=== PATIENT | female | born 1965 | race Two or more races ===

== ENCOUNTER 2025-01-29 02:08 | Inpatient (IN) | payer MEDICARE, MEDICAID ==
[2025-01-29] VITALS (12 sets, daily range): BP systolic 131–155; BP diastolic 74–91; PULSE 70–80; RESP 18–20; TEMP 98.1–98.9; O2SAT 97–100
[~2025-01-29] VITALS: Ht 152.4 cm; Wt 55.7 kg
--- NOTE | 2025-01-29 02:32 | ED.PDOC ---
SOB-HPI HPI Comments 59 year old female with PMHx cardiac stents-x3 presents to the ED via EMS with a chief complaint of shortness of breath. Per EMS, patient was transferred from [facility] due to elevated troponin levels, was transferred for higher level of care/N-STEMI. Patient was started on Heparin drip prior to ED arrival. Patient states she went to ED due to shortness of breath, is on home O2. Patient is a poor historian. No other symptoms or modifying factors present at this time. 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 History Family History Family History: Reviewed,noncontributory to illness, No family hx of Cancer, No family hx of DM, No family hx of Heart natasha, No family hx of HTN, No family hx ofKidney natasha, No family hx of Liver natasha, No family hx of Lung natasha, No family hx of Stroke Social History Smoker: Non-Smoker Alcohol: Denies ETOH Use Drugs: Denies Drug Use Lives In: Home Constitutional: denies: chills, diaphoresis, fatigue, fever, malaise, sweats, weakness, others EENTM: denies: blurred vision, double vision, ear bleeding, ear discharge, ear drainage, ear pain, ear ringing, eye pain, eye redness, hearing loss, mouth pain, mouth swelling, nasal discharge, nose bleeding, nose congestion, nose pain, photophobia, tearing, throat pain, throat swelling, voice changes, others Respiratory: reports: shortness of breath; denies: cough, hemoptysis, orthopnea, SOB at rest, SOB with excertion, stridor, wheezing, others Cardiovascular: denies: chest pain, dizzy spells, diaphoresis, Dyspnea on exertion, edema, irregular heart beat, left arm pain, lightheadedness, palpitations, PND, syncope, others Gastrointestinal: denies: abdomen distended, abdominal pain, blood streaked bowels, constipated, diarrhea, dysphagia, difficulty swallowing, hematemesis, melena, nausea, poor appetite, poor fluid intake, rectal bleeding, rectal pain, vomiting, others Genitourinary: denies: abnormal vagina bleeding, burning, dyspareunia, dysuria, flank pain, frequency, hematuria, incontinence, pain, , vagina discharge, urgency, others Neurological: denies: dizziness, fainting, headache, left sided numbness, left sided weakness, numbness, paresthesia, pre-existing deficit, right sided numbness, right sided weakness, seizure, speech problems, tingling, tremors, weakness, others Musculoskeletal: denies: back pain, gout, joint pain, joint swelling, muscle pain, muscle stiffness, neck pain, others Integumetry: denies: bruises, change in color, change in hair/nails, dryness, laceration, lesions, lumps, rash, wounds, others Allergic/Immunocompromised: denies: Difficulty Healing, Frequent Infections, Hives, Itching, others Hematologic/Lymphatic: denies: anemia, blood clots, easy bleeding, easy bruising, swollen glands, others Endocrine: denies: excessive hunger, excessive sweating, excessive thirst, excessive urination, flushing, intolerance to cold, intolerance to heat, unexplained weight gain, unexplained weight loss, others Psychiatric: denies: anxiety, bipolar disorder, depression, hopeless, panic disorder, schizophrenia, sleepless, suicidal, others All Other Systems: Reviewed and Negative Physical Exam General Appearance: Normal HEENT: Normal ENT Inspection, Pharynx Normal, TMs Normal Neck: Full Range of Motion, Non-Tender, Normal, Normal Inspection Respiratory: Chest Non-Tender, Lungs Clear, No Accessory Muscle Use, No Respiratory Distress, Normal Breath Sounds Cardiovascular: No Edema, No JVD, No Murmur, No Gallop, Normal Peripheral Pulses, Regular Rate/Rhythm Breast Exam: Deferred Gastrointestinal: No Organomegaly, Non Tender, No Pulsatile Mass, Normal Bowel Sounds, Soft Genitalia: Deferred Pelvic: Deferred Rectal: Deferred Extremities: No calf tenderness, Normal capillary refill, Normal inspection, Normal range of motion, Non-tender, No pedal edema Musculoskeletal : Apperance: Normal Neurologic: Alert, retail store clerk II-XII nml as Tested, No Motor Deficits, Normal Affect, Normal Mood, No Sensory Deficits Cerebellar Function: Normal Reflexes: Normal Skin: Dry, Normal Color, Warm Lymphatic: No Adenopathy Was a procedure done? Was a procedure done?: No Differential Dx Differential Diagnosis: Asthma, Bronchitis, Cardiogenic Shock, CHF, COPD, Dysrhythmia, Hypertension, Hyperventilation, Pneumonia, Pulmonary Embolism, Respiratory Distress, Pharyngitis, URI X-Ray, Labs, Meds, VS Vital Signs Date Time Temp Pulse Resp B/P (MAP) Pulse Ox O2 Delivery O2 Flow Rate FiO2 01/29/25 02:50 26 99 Nasal Cannula* 2 28 01/29/25 02:16 Nasal Cannula* 3 32 01/29/25 02:15 98.4 85 23 165/95 (118) 96 98.4 01/29/25 02:08 98.3 82 18 165/95 100 98.3 Lab Test 01/29/25 03:25 01/29/25 02:22 Range/Units Troponin I High Sensitivity Pending 97 *H </=34 ng/L White Blood Count 7.3 4.4-10.8 10^3/uL Red Blood Count 2.57 L 4.0-5.20 10^6/uL Hemoglobin 8.6 L 12.2-16.2 g/dL Hematocrit 26.1 L 36.0-46.0 % Mean Corpuscular Volume 101.6 H 80.0-100.0 fL Mean Corpuscular Hemoglobin 33.4 H 28.0-32.0 pg Mean Corpuscular Hemoglobin Concent 32.9 32.0-36.0 g/dL Red Cell Distribution Width 16.6 H 11.8-14.3 % Platelet Count 161 140-450 10^3/uL Mean Platelet Volume 8.3 6.9-10.8 fL Neutrophils (%) (Auto) 75.8 37.0-80.0 % Lymphocytes (%) (Auto) 13.9 10.0-50.0 % Monocytes (%) (Auto) 9.7 0.0-12.0 % Eosinophils (%) (Auto) 0.4 0.0-7.0 % Basophils (%) (Auto) 0.2 0.0-2.0 % Neutrophils # (Auto) 5.6 1.6-8.6 10 ^3/uL Lymphocytes # (Auto) 1.0 0.4-5.4 10 ^3/uL Monocytes # (Auto) 0.7 0-1.3 10 ^3/uL Eosinophils # (Auto) 0 0-0.8 10 ^3/uL Basophils # (Auto) 0 0-0.2 10 ^3/uL Nucleated Red Blood Cells 0.0 % Sodium Level 143 136-145 mmol/L Potassium Level 3.0 L 3.5-5.1 mmol/L Chloride Level 111 H 98-107 mmol/L Carbon Dioxide Level 26 20-31 mmol/L Anion Gap 6 5-15 Blood Urea Nitrogen 18 9-23 mg/dL Creatinine 1.36 H 0.550-1.02 mg/dL Glomerular Filtration Rate Calc 45 >90 mL/min BUN/Creatinine Ratio 13.2 10.0-20.0 Serum Glucose 105 74-106 mg/dL Calcium Level 7.8 L 8.7-10.4 mg/dL Magnesium Level 2.1 1.6-2.6 mg/dL Total Bilirubin 0.7 0.2-1.0 mg/dL Aspartate Amino Transferase (AST) 27 13-40 U/L Alanine Aminotransferase (ALT) 25 7-40 U/L Alkaline Phosphatase 82 46-116 U/L B-Type Natriuretic Peptide 479.05 0-100 pg/mL Total Protein 7.2 5.7-8.2 g/dL Albumin 4.0 3.2-4.8 g/dL Current Medications Medications (Trade) Dose Ordered Sig/Alexander Route Start Time Stop Time Status Last Admin Albuterol (Ventolin Medneb) 5 mg ONCE ONCE NEB 01/29/25 02:30 01/29/25 02:31 DC 01/29/25 02:50 Ipratropium [place] (Atrovent Medneb) 0.5 mg ONCE ONCE NEB 01/29/25 02:30 01/29/25 02:31 DC 01/29/25 02:50 Methylprednisolone Sodium Succinate (Solu Medrol) 80 mg ONCE ONCE IV 01/29/25 02:30 01/29/25 02:31 DC 01/29/25 02:46 Time of 1ST Reevaluation: 02:50 Reevaluation 1ST: Unchanged Patient Education/Counseling: Diagnosis, Treatment, Prognosis Family Education/Counseling: No Family Present SEPSIS Sepsis Screen Date sepsis recognized/suspect: Jan 29, 2025 Time Sepsis recognized/suspect: 215 Recent Procedure: No On Antibiotic Therapy: No Respiratory Rate >20: Yes Heart Rate >90: No Temp<36 C (96.8 F) or >38.3 C: No SBP <90 or MAP <65 mmHG: No New Acute Mental Status Change: No Is the patient on CPAP, BIPAP,: No Physician Orders Chest Portable (01/29/25 02:23) Toy Trains And Accessories Salesperson (01/29/25 02:23) Pulse Oximetry (01/29/25 02:23) Electrocardigram (01/29/25 02:23) Troponin-I Hs (01/29/25 03:23) Troponin-I Hs (01/29/25 05:23) Venous Blood Gas (01/29/25 02:23) Vital Signs Date Time Temp Pulse Resp B/P (MAP) Pulse Ox O2 Delivery O2 Flow Rate FiO2 01/29/25 02:50 26 99 Nasal Cannula* 2 28 01/29/25 02:16 Nasal Cannula* 3 32 01/29/25 02:15 98.4 85 23 165/95 (118) 96 98.4 01/29/25 02:08 98.3 82 18 165/95 100 98.3 Laboratory Tests Test 01/29/25 02:22 White Blood Count 7.3 10^3/uL (4.4-10.8) Medications Medications Dose Ordered Sig/Alexander Route Start Time Stop Time Status Last Admin Dose Admin Albuterol 5 mg ONCE ONCE NEB 01/29/25 02:30 01/29/25 02:31 DC 01/29/25 02:50 Ipratropium [place] 0.5 mg ONCE ONCE NEB 01/29/25 02:30 01/29/25 02:31 DC 01/29/25 02:50 Methylprednisolone Sodium Succinate 80 mg ONCE ONCE IV 01/29/25 02:30 01/29/25 02:31 DC 01/29/25 02:46 Departure 1 Departure Time of Disposition: 03:57 Impression: Primary Impression: COPD exacerbation Additional Impressions: Respiratory failure with hypoxia Acute coronary syndrome Disposition: ADMITTED INPATIENT Admit to: Tele Condition: Guarded Discharged With: Self Comments 59-year-old female transferred from [facility] with an elevated troponin. She has a history of COPD and has been shortness of breath. She does have some wheezing on exam. On her lab review she is quite anemic with an H&H of 8.6 and 26. Her BUN creatinine are slightly elevated at 18 and 1.36. Her troponin is elevated 97. Her BNP is elevated 479. Patient was given a breathing treatment and some Solu-Medrol. She did receive aspirin in [place]. She is chest pain-free at this time. Patient will need admission for supportive care and for further workup Critical Care Note Critical Care Time?: Yes (35 min-critical care time only) Critical care comment: Total critical care time: Approximately 36 minutes Due to a high probability of clinically significant, life threatening deterioration, the patient required my highest level of preparedness to intervene emergently and I personally spent this critical care time directly and personally managing the patient. This critical care time included obtaining a history; examining the patient; pulse oximetry; ordering and review of studies; arranging urgent treatment with development of a management plan; evaluation of patient's response to treatment; frequent reassessment; and, discussions with other providers. This critical care time was performed to assess and manage the high probability of imminent, life-threatening deterioration that could result in multi-organ failure. It was exclusive of separately billable procedures and treating other patients. Stability Stability form required: No Heart Score Heart Score: Heart Score Response (Comments) Value History Moderate Suspicious 1 EKG Repolarization Disturb 1 Age >65 2 Risk Factors 1 or 2 risk factors 1 Troponin 1-2 x's Normal limit 1 Total 6 I personally scribed for TRAVIS LOMELI MD ([email or web address]) on 01/29/25 at 02:32. Electronically submitted by Kira Berumen ([email or web address]). TRAVIS LOMELI MD Jan 29, 2025 02:32
[2025-01-29] MEDS: methylPREDNISolone SOD SUCC 125 MG/2 ML VL IV ONE (02:46)
[2025-01-29] MEDS: ALBUTEROL SULF 2.5 MG/0.5ML(0.5%) NEB SOLN NEB ONE (02:50)
[2025-01-29] MEDS: IPRATROPIUM BROM 0.5 MG/2.5ML INH SOL NEB ONE (02:50)
[2025-01-29 02:58] LABS: Alanine Aminotransferase 25 U/L (7-40); Albumin 4.0 g/dL (3.2-4.8); Alkaline Phosphatase 82 U/L (46-116); Anion Gap 6 (5-15); BUN/Creatinine Ratio 13.2 (10.0-20.0); Bilirubin, Total 0.7 mg/dL (0.2-1.0); Blood Urea Nitrogen 18 mg/dL (9-23); Carbon Dioxide 26 mmol/L (20-31); Glucose 105 mg/dL (74-106); Magnesium 2.1 mg/dL (1.6-2.6); Sodium 143 mmol/L (136-145); Total Protein 7.2 g/dL (5.7-8.2)
--- NOTE | 2025-01-29 02:59 | DVH ---
CHEST RADIOGRAPH Indication: SOB Technique: Single frontal view of the chest was obtained COMPARISON: XR CHEST 1 VIEW on DOS: 01/28/25, CTA CHEST on DOS: 01/27/25, XR CHEST 1 VIEW on DOS: 01/27/25, CT ABDOMEN PELVIS WITH on DOS: 01/27/25, XR CHEST 1 VIEW on DOS: 01/18/25 FINDINGS: Lines and Tubes: None Lungs: Clear Pleura: No effusion. No pneumothorax. Cardiomediastinal contours: Cardiomegaly. Bones: Unremarkable IMPRESSION: 1. Cardiomegaly.
[2025-01-29 03:09] LABS: Calcium 7.8 mg/dL (8.7-10.4); Chloride 111 mmol/L (98-107); Potassium 3.0 mmol/L (3.5-5.1)
[2025-01-29 03:18] LABS: Hematocrit 26.1 % (36.0-46.0); Hemoglobin 8.6 g/dL (12.2-16.2); Mean Corpuscular Hemoglobin 33.4 pg (28.0-32.0); Mean Corpuscular Volume 101.6 fL (80.0-100.0); Nucleated Red Blood Cells % 0.0 %
[2025-01-29] MEDS: ONDANSETRON HCL 4 MG/2 ML VIAL IV ONE (04:09)
[2025-01-29] MEDS: POTASSIUM CHL 20 Meq TABLET PO ONE (04:09)
[2025-01-29] MEDS: MORPHINE SULFATE 4 MG/ML SYR/VIAL IV ONE (04:10)
--- NOTE | 2025-01-29 06:01 | ECG ---
[facility] Test Date: 2025-01-29 Test Time: 05:58:42 Pat Name: CHRIS CRAMER Department: [facility] ED Patient ID: [facility]-[id number] Room: 0295T Gender: F Demand Planner: MADHU : 1965 Requested By: TRAVIS LOMELI Order Number: [id number] Reading MD: Ki Wells Measurements Intervals [place] Rate: 99 P: 79 IL: 147 QRS: 60 QRSD: 95 T: 110 QT: 406 QTc: 522 Interpretive Statements Sinus rhythm Probable left atrial enlargement Anteroseptal infarct, age indeterminate Prolonged QT interval Electronically Signed On 02-02-2025 10:52:17 PST by Ki Wells Please click the below link to view image of tracing.
[2025-01-29] MEDS ORDERED: DEXTROSE (50%) 50ML SYRG IV PRN (07:15)
[2025-01-29] MEDS ORDERED: MORPHINE SULFATE 4 MG/ML SYR/VIAL IV PRN (07:15)
[2025-01-29] MEDS ORDERED: ONDANSETRON HCL 4 MG/2 ML VIAL IV PRN (07:15)
[2025-01-29] MEDS ORDERED: NITROGLYCERIN 0.4 MG SL TAB SL PRN ×2 (07:15)
[2025-01-29] MEDS ORDERED: NIFE1TAB31 PO (07:39)
[2025-01-29] MEDS ORDERED: FOLI-119 PO (07:39)
[2025-01-29] MEDS ORDERED: LOS25T PO (07:39)
--- NOTE | 2025-01-29 07:44 | DVHHP2 ---
History of Present Illness Reason for Visit: Chest pain with shortness of breaths History of Present Illness Janeth Bustos is a 59-year-old female with past medical history of CVA, COPD, seizures, CHF, diabetes, hypertension, sleep apnea, ETOH, colostomy, and PTCA x3 who presents as a transfer from [place] for management of elevated troponin levels, shortness of breath, and chest pain that has been ongoing for a few days. Patient reports that her current pain is 6/10 sharp and constant. She reports that there are no triggering or alleviating factors. Patient reports that she uses 3 L nasal cannula of oxygen at home continuously. Patient reports that she had a recent stent this year at [facility] does not recall the month and reports that she does not have a manager pmo. Patient also reports that she had stopped taking her blood thinner medications 5 months ago because she ran out. Patient reports that he lives at home with her 2 sons and uses a front wheel walker to ambulate. She also endorses that she smokes 1 pack of cigarettes per day and drinks 6 cans of beer per day. Patient reports that her son at home is sick with a cold. Patient denies any recent trauma or injury, recent travels, recent ingestion of spoiled food, fever, chills, lightheadedness, weakness, dizziness, abdominal pain, nausea, vomiting, diarrhea, or urinary symptoms. Patient will be admitted to manage her symptoms and chest pain. 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 Endocrine: Diabetes Past Medical History Seizure Sleep apnea ETOH use Past Surgical History: Other (PTCA x3) Family History: None Smoke: <1 pack per day ALCOHOL: heavy Drugs: None Lives: with Family Domestic Violence: Neg Review of Systems Respiratory: Shortness of breath Cardiovascular: Chest Pain Allergies: Coded Allergies: NO KNOWN ALLERGIES (Unverified , 01/29/25) Exam Vital Signs Vital Signs Date Time Temp Pulse Resp B/P (MAP) Pulse Ox O2 Delivery O2 Flow Rate FiO2 01/29/25 06:49 84 20 142/86 (104) 98 01/29/25 02:50 Nasal Cannula* 2 28 01/29/25 02:15 98.4 98.4 General Appearance: Alert, Oriented X3, Cooperative, No acute distress HEENT: Atraumatic, PERRLA, EOMI Respiratory: Normal air movement Cardiovascular: Regular rate, Normal S1, Normal S2 Abdominal: Normal bowel sounds, Soft Extremities: No clubbing, No cyanosis, No edema, Normal pulses Skin: No significant lesion Neuro: Normal speech, Strength at 5/5 X4 ext, Normal tone, Sensation intact Psych/Mental Status: Mental status NL, Mood NL Labs/Xrays Labs Test 01/29/25 05:20 01/29/25 02:40 01/29/25 02:22 Range/Units Troponin I High Sensitivity 99 *H </=34 ng/L Blood Gas Specimen Type Venous Blood Gas Sample Site Vbg - n/a Blood Gas Patient Temperature 37.0 Arterial Blood Date Drawn [id number] Nirav Test N/a Venous Blood pH 7.291 L 7.320-7.430 Venous Blood pCO2 at Patient Temp 57.8 *H 38.0-54.0 mmHg Venous Blood pO2 at Patient Temp 45.3 23.0-48.0 mmHg Venous Blood HCO3 27.2 22.0-29.0 mmol/L Venous Blood Base Excess -0.6 -2.0-3.0 mmol/L Blood Gas Liter Flow 2.00 Blood Gas Modality Nasal cannula FiO2 % 28.0 Blood Gas Critical Value Read Back Yes Blood Gas Notified Whom Md vipul stein Blood Gas Notified Time [id number] Blood Gas Notified By Rt gianna cano White Blood Count 7.3 4.4-10.8 10^3/uL Red Blood Count 2.57 L 4.0-5.20 10^6/uL Hemoglobin 8.6 L 12.2-16.2 g/dL Hematocrit 26.1 L 36.0-46.0 % Mean Corpuscular Volume 101.6 H 80.0-100.0 fL Mean Corpuscular Hemoglobin 33.4 H 28.0-32.0 pg Mean Corpuscular Hemoglobin Concent 32.9 32.0-36.0 g/dL Red Cell Distribution Width 16.6 H 11.8-14.3 % Platelet Count 161 140-450 10^3/uL Mean Platelet Volume 8.3 6.9-10.8 fL Neutrophils (%) (Auto) 75.8 37.0-80.0 % Lymphocytes (%) (Auto) 13.9 10.0-50.0 % Monocytes (%) (Auto) 9.7 0.0-12.0 % Eosinophils (%) (Auto) 0.4 0.0-7.0 % Basophils (%) (Auto) 0.2 0.0-2.0 % Neutrophils # (Auto) 5.6 1.6-8.6 10 ^3/uL Lymphocytes # (Auto) 1.0 0.4-5.4 10 ^3/uL Monocytes # (Auto) 0.7 0-1.3 10 ^3/uL Eosinophils # (Auto) 0 0-0.8 10 ^3/uL Basophils # (Auto) 0 0-0.2 10 ^3/uL Nucleated Red Blood Cells 0.0 % Sodium Level 143 136-145 mmol/L Potassium Level 3.0 L 3.5-5.1 mmol/L Chloride Level 111 H 98-107 mmol/L Carbon Dioxide Level 26 20-31 mmol/L Anion Gap 6 5-15 Blood Urea Nitrogen 18 9-23 mg/dL Creatinine 1.36 H 0.550-1.02 mg/dL Glomerular Filtration Rate Calc 45 >90 mL/min BUN/Creatinine Ratio 13.2 10.0-20.0 Serum Glucose 105 74-106 mg/dL Calcium Level 7.8 L 8.7-10.4 mg/dL Magnesium Level 2.1 1.6-2.6 mg/dL Total Bilirubin 0.7 0.2-1.0 mg/dL Aspartate Amino Transferase (AST) 27 13-40 U/L Alanine Aminotransferase (ALT) 25 7-40 U/L Alkaline Phosphatase 82 46-116 U/L B-Type Natriuretic Peptide 479.05 0-100 pg/mL Total Protein 7.2 5.7-8.2 g/dL Albumin 4.0 3.2-4.8 g/dL CHEST RADIOGRAPH Indication: SOB Technique: Single frontal view of the chest was obtained COMPARISON: XR CHEST 1 VIEW on DOS: 01/28/25, CTA CHEST on DOS: 01/27/25, XR CHEST 1 VIEW on DOS: 01/27/25, CT ABDOMEN PELVIS WITH on DOS: 01/27/25, XR CHEST 1 VIEW on DOS: 01/18/25 FINDINGS: Lines and Tubes: None Lungs: Clear Pleura: No effusion. No pneumothorax. Cardiomediastinal contours: Cardiomegaly. Bones: Unremarkable IMPRESSION: 1. Cardiomegaly. SEPSIS Sepsis Screen Date sepsis recognized/suspect: Jan 29, 2025 Time Sepsis recognized/suspect: 215 Recent Procedure: No On Antibiotic Therapy: No Respiratory Rate >20: Yes Heart Rate >90: No Temp<36 C (96.8 F) or >38.3 C: No SBP <90 or MAP <65 mmHG: No New Acute Mental Status Change: No Is the patient on CPAP, BIPAP,: No Physician Orders Chest Portable (01/29/25 02:23) Picking Tech (01/29/25 02:23) Pulse Oximetry (01/29/25 02:23) Venous Blood Gas (01/29/25 02:23) Vital Signs Date Time Temp Pulse Resp B/P (MAP) Pulse Ox O2 Delivery O2 Flow Rate FiO2 01/29/25 06:49 84 20 142/86 (104) 98 01/29/25 06:06 95 20 164/91 01/29/25 05:58 99 01/29/25 05:00 102 25 169/87 (114) 96 01/29/25 04:10 79 18 148/76 01/29/25 04:00 82 22 148/76 (100) 96 01/29/25 02:50 26 99 Nasal Cannula* 2 28 01/29/25 02:16 Nasal Cannula* 3 32 01/29/25 02:15 98.4 85 23 165/95 (118) 96 98.4 01/29/25 02:08 98.3 82 18 165/95 100 98.3 Laboratory Tests Test 01/29/25 02:22 White Blood Count 7.3 10^3/uL (4.4-10.8) Medications Medications Dose Ordered Sig/Alexander Route Start Time Stop Time Status Last Admin Dose Admin Albuterol 5 mg ONCE ONCE NEB 01/29/25 02:30 01/29/25 02:31 DC 01/29/25 02:50 5 MG Ipratropium [place] 0.5 mg ONCE ONCE NEB 01/29/25 02:30 01/29/25 02:31 DC 01/29/25 02:50 0.5 MG Methylprednisolone Sodium Succinate 80 mg ONCE ONCE IV 01/29/25 02:30 01/29/25 02:31 DC 01/29/25 02:46 80 MG Morphine Sulfate 4 mg ONCE ONCE IV 01/29/25 04:00 01/29/25 04:01 DC 01/29/25 04:10 4 MG Ondansetron HCl 4 mg ONCE ONCE IV 01/29/25 04:00 01/29/25 04:01 DC 01/29/25 04:09 4 MG Potassium Chloride 20 meq ONCE ONCE PO 01/29/25 04:00 01/29/25 04:01 DC 01/29/25 04:09 20 MEQ Assessment/Plan Assessment/Plan Assessment Acute on chronic COPD versus CHF exacerbation NSTEMI Cardiomegaly Anemia Hypokalemia SAM likely prerenal Tobacco use Alcohol use History of colostomy History of CVA History of COPD History of seizures History of diabetes History of hypertension History of sleep apnea History of ETOH abuse History of PTCA x3, most recent one this year at [facility] Medication noncompliance Plan Admit to tele Antiemetics Pain management Aspirin+ statin Replete lytes Steroids given in ED Duo nebs Mag level VBG Troponin trend EKG BNP Chest x-ray Hemoglobin A1c ISS and Accu-Cheks Diurese Strict I&Os Daily weight Multivitamin Thiamine Folic acid Seizure precautions Diet Home medications reconciled DVT prophylaxis-Lovenox PUD prophylaxis-not indicated no history of GERD or GI bleed Discussed plan of care with patient and nurse Cardiology consult Counseled patient on cessation of alcohol and use Counseled patient on medication adherence 37062 Advanced care planning discussed [id number] Behavior change smoking greater than 10 minutes about use of other options also gave option of nicotine patch [id number] Preventive counseling healthy eating habits, physical activity, and regular checkups Plan discussed with: Patient Date of Service: Jan 29, 2025 Billing Provider: KIRK CHRISTENESN Common Visit Codes: 66094-CISYRVS INP/OBS CARE (HIGH) Secondary Visit Codes: 41754-MARYHYFRKC COUNSELING IND, 66172-XCFSY CHNG SMOKING >10MIN, [id number]-[id number] CARE PLAN 30 MINUTES KIRK CHRISTENSEN Jan 29, 2025 07:44
[2025-01-29] MEDS: MORPHINE SULFATE INJ 2 MG/ml SYRG IV PRN (08:46)
[2025-01-29 09:21] LABS: Urine Protein, UAD 1+ (Negative)
[2025-01-29 09:23] LABS: Amphetamine Screen, Urine Neg (NEGATIVE); Barbiturate Scree,Urine Neg (NEGATIVE); Benzodiazephine Screen, Urine Neg (NEGATIVE); Cannabinoid Screen, Urine Neg (NEGATIVE); Cocaine Screen, Urine Neg (NEGATIVE); Opiate Scree,Urine Pos (NEGATIVE); Phencyclidine Screen, Urine Neg (NEGATIVE)
[2025-01-29] MEDS ORDERED: FOLIC ACID 1 MG TAB PO SCH (10:00)
--- NOTE | 2025-01-29 11:11 | DVHCONRES ---
Date Seen: Jan 29, 2025 Resident Creating Document: THERESA BRANDON RESIDENT History of Present Illness This is a 59-year-old female who was transferred from [facility] for the evaluation of shortness of breaths and an NSTEMI. Per chart review, this is 3rd thiamine 4 days that the patient visit [place] for shortness of breaths, she has a history of COPD, started on steroids. She has a history of chronic alcohol abuse and dependence, COPD, CVA, CHF, diabetes, hypertension, sleep apnea, seizure disorder. Per documentation, she is noted to have 174 previous ER visits. At [place], WBCs 6, hemoglobin 9, hematocrit 27, potassium 3.4, creatinine 1.3, drop eyes 0.06, BNP 940, x-ray showed interstitial prominence Per patient, she has been feeling shortness of breath, productive cough with phlegm, since Halloween, she thinks she got cold, her son is also experiencing same symptoms, she reports also experiencing chest pain which is worse on deep inhalation, radiating to left back and right shoulder, sharp in nature. She has a 3 stents in the past, last one 1 year ago, she does not remember home medications. 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 EKG shows normal sinus rhythm, decreased bilateral breath sounds with coarse crackles heard, minimal wheezing. No pitting edema. Allergies: Coded Allergies: NO KNOWN ALLERGIES (Unverified , 01/29/25) Home Meds Reported Medications Folic Acid (Folic Acid) 1 Mg Tab, 1 TAB PO DAILY 01/29/25 Nifedipine (Nifedipine Er) 30 Mg Tab, 1 TAB PO DAILY 01/29/25 Losartan Potassium (Losartan Potassium) 25 Mg Tab, 1 TAB PO DAILY 01/29/25 Current Medications Current Medications Medications (Trade) Dose Ordered Sig/Alexander Route PRN Reason Start Time Stop Time Status Last Admin Diagnostic Test (Pha) (Accu-Chek Comfort Curve T) 1 strip ACHS 01/29/25 11:30 Insulin Human Regular (InsuLIN R) ACHS SC 01/29/25 11:30 Dextrose 50 ml UD PRN IV Blood Sugar LESS THAN 60 01/29/25 07:15 Furosemide (Lasix Injection) 40 mg DAILY IV 01/29/25 10:00 Aspirin 81 mg DAILY PO 01/29/25 10:00 Atorvastatin Calcium (Lipitor) 40 mg HS PO 01/29/25 22:00 Morphine Sulfate 2 mg Q30MP PRN IV FOR CHEST PAIN 01/29/25 07:15 01/29/25 08:05 DC Acetaminophen (Tylenol Tablet) 650 mg Q6HP PRN PO MILD PAIN (1-3 PAIN SCALE) 01/29/25 07:15 Nitroglycerin (Ntrostat Sublingual) 0.4 mg Q5MINP PRN SL FOR CHEST PAIN 01/29/25 07:15 01/29/25 08:05 DC Ondansetron HCl (Zofran) 4 mg Q4HP PRN IV NAUSEA / VOMITING 01/29/25 07:15 Nitroglycerin (Ntrostat Sublingual) 0.4 mg Q5MINP PRN SL FOR CHEST PAIN 01/29/25 07:15 Morphine Sulfate 2 mg Q30M PRN IV FOR CHEST PAIN 01/29/25 07:15 01/29/25 08:46 Losartan Potassium (Cozaar Tablet) 25 mg DAILY PO 01/29/25 10:00 Nifedipine (Procardia Xl (Time-Release)) 30 mg DAILY PO 01/29/25 10:00 Folic Acid 1 mg DAILY PO 01/29/25 10:00 Enoxaparin Sodium (Lovenox) 40 mg DAILY SC 01/29/25 09:45 Thiamine HCl 100 mg DAILY PO 01/29/25 10:00 Folic Acid 1 mg DAILY PO 01/29/25 10:00 01/29/25 09:53 DC Multivitamins/ Minerals (Mvi W/ Minerals Tablet) 1 tab DAILY PO 01/29/25 10:00 Levetiracetam (Keppra Tablet) 500 mg BID PO 01/29/25 10:00 Review of Systems Eyes: No Pain, No Vision change, No Conjunctivae inflammation, No Eyelid inf lammation, No Other, No Redness ENT: No Ear pain, No Ear discharge, No Nose pain, No Nose discharge, No Nose congestion, No Mouth pain, No Mouth swelling, No Throat pain, No Throat swelling, No Other Cardiovascular: Reports pleuritic Chest Pain, No Palpitations, No Orthopnea, No PND, No Edema, No Lt Headedness, No Other Respiratory: Reports Cough, No Dry, reports Shortness of breath, No SOB with exertion, No Wheezing, No Hemoptysis, No Pleuritic Pain, No Sputum, No Other Gastrointestinal: No Nausea, No Vomiting, No Abdominal Pain, No Diarrhea, No Constipation, No Melena, No Hematochezia, No Other Genitourinary: No Dysuria, No Frequency, No Incontinence, No Hematuria, No Retention, No Other Musculoskeletal: No other, No neck pain, No shoulder pain, No arm pain, No back pain, No hand pain, No leg pain, No foot pain Skin: No Rash, No Lesions, No Jaundice, No Bruising, No Other Vital Signs Vital Signs Date Time Temp Pulse Resp B/P (MAP) Pulse Ox O2 Delivery O2 Flow Rate FiO2 01/29/25 09:20 81 20 168/94 01/29/25 07:45 98.4 99 98.4 01/29/25 07:45 Nasal Cannula* 3 32 Physical Exam Patient lying in bed, in no Mild distress General: Well-built, afebrile, palor, mucosae are moist Cardiovascular: Regular S1 and S2. No murmurs, gallops or rubs. No JVD elevation. No pedal edema Respiratory: Decreased bilateral breath sounds heard on auscultation, coarse crackles and minimal wheezing, on 3 L home oxygen Abdomen: Soft, nontender, nondistended, normoactive bowel sounds, no rebound tenderness, no organomegaly, no masses Genitourinary: Deferred MSK/skin: Mobilizes 4 limbs. Skin is dry and warm Neurological: No motor, no sensitive deficits, normal speech. Pupils are isocoric and reactive. Psych/Mental Status: A/Ox3 Labs/Diagnostic Data Labs Test 01/29/25 08:00 01/29/25 07:55 01/29/25 05:20 01/29/25 02:40 Range/Units Urine Color Light-yellow Yellow Urine Clarity Clear Clear Urine pH 6.0 5.0-9.0 Urine Specific [place] 1.016 1.001-1.035 Urine Protein 1+ H Negative Urine Ketones Negative Negative Urine Blood Trace H Negative /uL Urine Nitrite Negative Negative Urine Bilirubin Negative Negative Urine Urobilinogen Normal Negative mg/dL Urine Leukocyte Esterase Negative Negative /uL Urine RBC <1 0 - 4 /hpf Urine Microscopic WBC 1 0-5 /HPF Urine Squamous Epithelial Cells Few <5 /hpf Urine Bacteria None seen None Seen /hpf Urine Glucose 2+ H Normal mg/dL Urine Opiates Screen Pos NEGATIVE Urine Fentanyl Screen Neg NEGATIVE Urine Barbiturates Screen Neg NEGATIVE Urine Phencyclidine Screen Neg NEGATIVE Urine Amphetamines Screen Neg NEGATIVE Urine Benzodiazepines Screen Neg NEGATIVE Urine Cocaine Screen Neg NEGATIVE Urine Cannabinoids Screen Neg NEGATIVE Hemoglobin A1c 5.2 <5.7 % A1C Troponin I High Sensitivity 99 *H </=34 ng/L Thyroid Stimulating Hormone (TSH) 3.10 0.55-4.78 uIU/mL Blood Gas Specimen Type Venous Blood Gas Sample Site Vbg - n/a Blood Gas Patient Temperature 37.0 Arterial Blood Date Drawn [id number] Nirav Test N/a Venous Blood pH 7.291 L 7.320-7.430 Venous Blood pCO2 at Patient Temp 57.8 *H 38.0-54.0 mmHg Venous Blood pO2 at Patient Temp 45.3 23.0-48.0 mmHg Venous Blood HCO3 27.2 22.0-29.0 mmol/L Venous Blood Base Excess -0.6 -2.0-3.0 mmol/L Blood Gas Liter Flow 2.00 Blood Gas Modality Nasal cannula FiO2 % 28.0 Blood Gas Critical Value Read Back Yes Blood Gas Notified Whom Md vipul stein Blood Gas Notified Time [id number] Blood Gas Notified By Rt gianna cano Test 01/29/25 02:22 Range/Units White Blood Count 7.3 4.4-10.8 10^3/uL Red Blood Count 2.57 L 4.0-5.20 10^6/uL Hemoglobin 8.6 L 12.2-16.2 g/dL Hematocrit 26.1 L 36.0-46.0 % Mean Corpuscular Volume 101.6 H 80.0-100.0 fL Mean Corpuscular Hemoglobin 33.4 H 28.0-32.0 pg Mean Corpuscular Hemoglobin Concent 32.9 32.0-36.0 g/dL Red Cell Distribution Width 16.6 H 11.8-14.3 % Platelet Count 161 140-450 10^3/uL Mean Platelet Volume 8.3 6.9-10.8 fL Neutrophils (%) (Auto) 75.8 37.0-80.0 % Lymphocytes (%) (Auto) 13.9 10.0-50.0 % Monocytes (%) (Auto) 9.7 0.0-12.0 % Eosinophils (%) (Auto) 0.4 0.0-7.0 % Basophils (%) (Auto) 0.2 0.0-2.0 % Neutrophils # (Auto) 5.6 1.6-8.6 10 ^3/uL Lymphocytes # (Auto) 1.0 0.4-5.4 10 ^3/uL Monocytes # (Auto) 0.7 0-1.3 10 ^3/uL Eosinophils # (Auto) 0 0-0.8 10 ^3/uL Basophils # (Auto) 0 0-0.2 10 ^3/uL Nucleated Red Blood Cells 0.0 % Sodium Level 143 136-145 mmol/L Potassium Level 3.0 L 3.5-5.1 mmol/L Chloride Level 111 H 98-107 mmol/L Carbon Dioxide Level 26 20-31 mmol/L Anion Gap 6 5-15 Blood Urea Nitrogen 18 9-23 mg/dL Creatinine 1.36 H 0.550-1.02 mg/dL Glomerular Filtration Rate Calc 45 >90 mL/min BUN/Creatinine Ratio 13.2 10.0-20.0 Serum Glucose 105 74-106 mg/dL Calcium Level 7.8 L 8.7-10.4 mg/dL Magnesium Level 2.1 1.6-2.6 mg/dL Total Bilirubin 0.7 0.2-1.0 mg/dL Aspartate Amino Transferase (AST) 27 13-40 U/L Alanine Aminotransferase (ALT) 25 7-40 U/L Alkaline Phosphatase 82 46-116 U/L B-Type Natriuretic Peptide 479.05 0-100 pg/mL Total Protein 7.2 5.7-8.2 g/dL Albumin 4.0 3.2-4.8 g/dL Free Thyroxine (T4) Calculated 0.96 0.89-1.76 ng/dL Assessment Acute on chronic CHF exacerbation-NYHA class 3 NSTEMI likely type 2 Acute on chronic COPD exacerbation Acute chest pain, likely pleuritic COPD on 3 L home oxygen CAD with 3 [place] Diabetes mellitus-A1c unknown Anemia likely microcytic secondary to alcohol use Leukopenia secondary to alcohol use Hypertension Chronic nicotine dependence Chronic alcohol dependence History of seizure disorder BNP 400 Troponin 98, 99 Plan/Recommendation Given the clinical picture, NSTEMI , patient will benefit from inpatient stress test, Cardiolite, on 1st availability bases. Recommend continuing IV Lasix 40 mg daily Nebulized albuterol, ipratropium, budesonide 6 hourly Follow up with the echocardiogram, lipid panel, COVID, influenza, respiratory culture, MRSA nares Continue aspirin 81 mg and Plavix 75 mg daily Metoprolol 25 mg daily, losartan 25 mg daily, up titrate to achieve blood pressure control. Discontinued nifedipine given likely CHF Counseled regarding compliance to medications, follow up with Cardiology as outpatient Monitor telemetry, keep K greater than 4, Mag greater than 2 Strict I&Os fluid restriction and cardiac diet Plan discussed with patient in which all questions have been answered Case discussed with Dr. Mireles Plan discussed with: Patient Visit Coding Cardiology RES Date of Service: Jan 29, 2025 Billing Provider: YANELY MIRELES Sr., MD Cardiology Common Codes: CONSULT ONLY THERESA BRANDON RESIDENT Jan 29, 2025 11:11
[2025-01-29] MEDS: BUDESONIDE (INHALATION) 0.5 MG/2 ML NEB NEB SCH (11:15)
[2025-01-29] MEDS: InsuLIN REG 1unit/0.01ml Soln (100units/ml) SC SCH (11:30)
[2025-01-29] MEDS: ACCU-CHEK COMFORT CURVE STRIP VI SCH (11:30)
--- NOTE | 2025-01-29 11:48 | DVHPN2 ---
Progress Note Date Seen: Jan 29, 2025 Medical Necessity Reason Pt with a Central, PICC or Fol: No Subjective Patient reports: No new complaints (No acute events overnight. Intermittent chest pain improving. No headache, dizziness, nausea vomiting constipation diarrhea) Changes from previous H/P or p: No Changes Objective vital signs Vital Sign Date Time Temp Pulse Resp B/P (MAP) Pulse Ox O2 Delivery O2 Flow Rate FiO2 01/29/25 09:20 81 20 168/94 01/29/25 07:45 98.4 99 98.4 01/29/25 07:45 Nasal Cannula* 3 32 medications Current Medications Medications Dose Ordered Sig/Alexander Route Start Time Stop Time Status Last Admin Dose Admin Diagnostic Test (Pha) 1 strip ACHS 01/29/25 11:30 Insulin Human Regular ACHS SC 01/29/25 11:30 Dextrose 50 ml UD PRN IV 01/29/25 07:15 Furosemide 40 mg DAILY IV 01/29/25 10:00 Aspirin 81 mg DAILY PO 01/29/25 10:00 Atorvastatin Calcium 40 mg HS PO 01/29/25 22:00 Acetaminophen 650 mg Q6HP PRN PO 01/29/25 07:15 Ondansetron HCl 4 mg Q4HP PRN IV 01/29/25 07:15 Nitroglycerin 0.4 mg Q5MINP PRN SL 01/29/25 07:15 Morphine Sulfate 2 mg Q30M PRN IV 01/29/25 07:15 01/29/25 08:46 2 MG Losartan Potassium 25 mg DAILY PO 01/29/25 10:00 Nifedipine 30 mg DAILY PO 01/29/25 10:00 Folic Acid 1 mg DAILY PO 01/29/25 10:00 Enoxaparin Sodium 40 mg DAILY SC 01/29/25 09:45 Thiamine HCl 100 mg DAILY PO 01/29/25 10:00 Multivitamins/ Minerals 1 tab DAILY PO 01/29/25 10:00 Levetiracetam 500 mg BID PO 01/29/25 10:00 Potassium Chloride 100 ml @ 50 mls/hr Q2H IV 01/29/25 11:15 01/29/25 15:14 Clopidogrel Bisulfate 75 mg DAILY PO 01/30/25 10:00 Levalbuterol HCl 1.25 mg Q6HR NEB 01/29/25 12:00 Ipratropium [place] 0.5 mg Q6HR NEB 01/29/25 12:00 Budesonide 0.25 mg BID NEB 01/29/25 11:15 Examination: GENERAL:Normal, HEENT:Normal, NECK:Normal, LUNGS:Normal, CVS:Normal, ABDOMEN:Normal, MSK:Normal, SKIN:Normal, NEURO:Normal laboratory and microbiology Laboratory Tests 01/29/25 02:22 Test 01/29/25 02:22 Range/Units Serum Glucose 105 74-106 mg/dL Labs and/or images reviewed: Labs reviewed by me, Image(s) reviewed by me Problem List/Assessment/Plan Problem List/Assessment/Plan Acute on chronic CHF exacerbation-NYHA class 3 NSTEMI likely type 2 Acute on chronic COPD exacerbation Acute chest pain, likely pleuritic COPD on 3 L home oxygen CAD with 3 [place] Diabetes mellitus-A1c unknown Anemia likely microcytic secondary to alcohol use Leukopenia secondary to alcohol use Hypertension Chronic nicotine dependence Chronic alcohol dependence History of seizure disorder Medication noncompliance Continue IV Lasix 40 mg daily Duo nebs q.6 hours Follow up with the echo Lipid panel, COVID influenza and respiratory panel MRSA as needed Continue aspirin 81 and Plavix 75 mg daily Potassium greater than four, magnesium greater than two while on IV diuresis Daily weights Strict in and out Fluid restriction woman 5 L Cardiac diet Insulin sliding scale Thiamine Folic acid NPO after midnight for stress test Seizure precaution Lovenox for DVT prophylaxis No GI prophylaxis needed Plan discussed with: Patient Date of Service: Jan 29, 2025 Billing Provider: BLANCO DIEGO MD Common Visit Codes: [id number] SAME DATE (HIGH) BLANCO DIEGO MD Jan 29, 2025 11:48
[2025-01-29 12:04] LABS: Anion Gap 10 (5-15); Carbon Dioxide 26 mmol/L (20-31)
[2025-01-29 12:05] LABS: Calcium 7.5 mg/dL (8.7-10.4); Chloride 109 mmol/L (98-107); Potassium 3.3 mmol/L (3.5-5.1); Sodium 145 mmol/L (136-145)
[2025-01-29 12:09] LABS: BUN/Creatinine Ratio 16.8 (10.0-20.0)
[2025-01-29 12:14] LABS: Blood Urea Nitrogen 24 mg/dL (9-23); Glucose 157 mg/dL (74-106)
[2025-01-29] MEDS: FUROSEMIDE 40 MG/4 ML VIAL IV SCH (12:16)
[2025-01-29] MEDS: ENOXAPARIN SOD 40 MG/0.4 ML SYRINGE SC SCH (12:17)
[2025-01-29] MEDS: MULTIPLE VITAMINS W/ MINERALS TAB PO SCH (12:17)
[2025-01-29] MEDS: levETIRAcetam 500 MG TAB PO SCH (12:18)
[2025-01-29] MEDS: LOSARTAN POTASSIUM 25 MG TAB PO SCH (12:18)
[2025-01-29] MEDS: THIAMINE HCL 100 MG TAB PO SCH (12:19)
[2025-01-29] MEDS: FOLIC ACID 1 MG TAB PO SCH (12:19)
[2025-01-29 12:24] LABS: Triglycerides 96 mg/dL (< 150)
[2025-01-29 12:26] LABS: Cholesterol 279 mg/dL (< 200); HDL Cholesterol 182 mg/dL (40-59)
[2025-01-29] MEDS: METOPROLOL SUCCINATE XL 50 MG TAB PO ONE (12:35)
[2025-01-29] MEDS: CLOPIDOGREL BISULFATE 75 MG TAB PO ONE (12:36)
[2025-01-29] MEDS: POTASSIUM CHL 20MEQ/100ML 100 ML IV SCH (12:37)
[2025-01-29 12:50] LABS: INR 0.97 (0.9-1.15); Partial Thromboplastin Time 23.1 SEC (24.5-34.5); Prothrombin Time 10.3 sec (9.3-11.8)
[2025-01-29] MEDS: LEVALBUTEROL HCL 1.25 MG/3 ML NEB NEB SCH (12:54)
[2025-01-29] MEDS: IPRATROPIUM BROM 0.5 MG/2.5ML INH SOL NEB SCH (12:54)
--- NOTE | 2025-01-29 17:20 | DVHSR ---
APPROVED REPORT EXAM: Two-dimensional and M-mode echocardiogram with Doppler and color Doppler. Blood Pressure: 142/86 mmHg INDICATION Chest Pain RISK FACTORS Height: 60, Weight: 123 DIMENSIONS LVDd 4.8 (3.8-5.7cm) LA (2D) 4.2 (1.9-4.0cm) Aortic Root 3.4 (2.0-3.7cm) LVDs 3.3 (2.5-4.0cm) LA (MM) (1.9-4.0cm) Aortic Cusp Exc 1.8 (1.5-2.0cm) EF (%) 60.0 (55-70%) Rt. Atrium 3.9 (1.9-4.0cm) Asc. Aorta 3.4 cm IVSd 1.0 (0.7-1.1cm) RV (D) 3.2 (1.8-2.4cm) PWd 1.0 (0.7-1.1cm) Mitral Valve Mitral Mitral Stenosis E wave 1.46m/s MV Mean GR. 5mmHg A wave 1.68m/s MV Peak GR. 120mmHg E/A ratio 0.9 2D MVA cm2 DECEL Time 362ms PRESS 1/2 Time ms Aortic Valve Aortic Valve Aortic Stenosis V1 1.22m/s AO Mean GR. 5mmHg V2 1.54m/s AO Peak GR. 9mmHg LVOT Diameter 2.1 (1.8-2.4cm) Doppler TIFFANIE 2.74cm2 Pulmonic Valve V2 0.99m/s Tricuspid Valve TR Velocity 2.39m/s RVSP 37mmHg Conclusion Technically good study. Sinus rhythm. Mild aortic root enlargement. Valves are normal. EF of 60% with normal RV function. Mild TR. No pericardial effusion masses or vegetations.
[2025-01-29] MEDS: ACETAMINOPHEN 325 MG TAB PO PRN (20:22)
[2025-01-29] MEDS: ATORVASTATIN 20 MG TAB PO SCH (22:09)
[2025-01-30] VITALS (18 sets, daily range): BP systolic 138–150; BP diastolic 62–88; PULSE 53–85; RESP 16–24; TEMP 97.2–98.3; O2SAT 94–100
[2025-01-30] MEDS: HYDROcodone-ACET 5/325MG TAB PO PRN (04:08)
[2025-01-30 06:40] LABS: Nucleated Red Blood Cells % 0.1 %
[2025-01-30 06:42] LABS: Hematocrit 26.3 % (36.0-46.0); Hemoglobin 8.4 g/dL (12.2-16.2); Mean Corpuscular Hemoglobin 33.4 pg (28.0-32.0); Mean Corpuscular Volume 104.0 fL (80.0-100.0)
[2025-01-30 06:46] LABS: Anion Gap 7 (5-15); Carbon Dioxide 27 mmol/L (20-31); Potassium 3.9 mmol/L (3.5-5.1); Sodium 143 mmol/L (136-145)
[2025-01-30 06:52] LABS: BUN/Creatinine Ratio 12.8 (10.0-20.0); Triglycerides 115 mg/dL (< 150)
[2025-01-30 06:53] LABS: Magnesium 2.1 mg/dL (1.6-2.6)
[2025-01-30 06:59] LABS: Blood Urea Nitrogen 29 mg/dL (9-23); Calcium 7.6 mg/dL (8.7-10.4); Chloride 109 mmol/L (98-107); Cholesterol 285 mg/dL (< 200); Glucose 110 mg/dL (74-106); HDL Cholesterol 179 mg/dL (40-59)
[2025-01-30] MEDS: REGADENOSON 0.4 MG/5 ML SYRG IV ONE ×2 (07:53→08:28)
[2025-01-30] MEDS: CLOPIDOGREL BISULFATE 75 MG TAB PO SCH ×2 (10:00→22:15)
[2025-01-30] MEDS: METOPROLOL SUCCINATE XL 50 MG TAB PO SCH (10:00)
--- NOTE | 2025-01-30 12:25 | DVH ---
EXAM: XY CHEST PORTABLE HISTORY: [place] TECHNIQUE: 1 view of the chest COMPARISON: XY CHEST PORTABLE on DOS: 01/29/25 FINDINGS/IMPRESSION: LUNGS: No pleural effusion, consolidation, or pneumothorax. peripheral interstitial edema. MEDIASTINUM: Mild cardiomegaly. BONES: No acute osseous abnormality. OTHER: None.
[2025-01-30 12:28] LABS: Base Excess -1.0 mmol/L (-2.0-3.0)
--- NOTE | 2025-01-30 12:41 | DVH ---
EXAM: CT STROKE CTH INDICATION: Concern for stroke TECHNIQUE: CT images of the head were obtained without administration of IV contrast. CT scans at this facility use dose modulation, iterative reconstruction, and/or weight based dosing when appropriate to reduce radiation dose to as low as reasonably achievable. COMPARISON: CT HEAD WO on DOS: 08/06/24 FINDINGS: PARENCHYMA: No acute hemorrhage. There is no mass effect, midline shift, or herniation. Inconspicuous area of loss of lance-white differentiation of the right parietal lobe to right posterior temporal lobe. Moderate scattered hypoattenuation along the periventricular, centrum semiovale, and deep white matter tracts, which are nonspecific however statistically most likely represent chronic microvascular ischemic change. VENTRICLES: No hydrocephalus. EXTRA-AXIAL SPACES: No extra-axial fluid collections. OTHER: The bony structures are intact. Visualized portions of the paranasal sinuses and mastoid air cells are clear. IMPRESSION: 1. Inconspicuous area of loss of lance-white differentiation of the right parietal lobe to right posterior temporal lobe. Underlying acute infarction not excluded.
--- NOTE | 2025-01-30 16:06 | DVHSR ---
APPROVED REPORT Exam: Nuclear Stress Test BMI: 0 Stress Test Details Stress Test: Pharmacologic stress testing performed using 0.4 mg of regadenoson per 5 mL given IV over 10 seconds. HR Resting HR: 68 bpm Max Heart Rate (APMHR): 160.685165 bpm Max HR Achieved: 87 bpm Target HR (85% APMHR): 136.078542 bpm % of APMHR: 54.38 Recovery HR: 70 bpm BP Resting BP: 138/73 mmHg Recovery BP: 133/70 mmHg ECG Resting ECG: Sinus Rhythm Clinical Reason for Termination: Completed protocol Nurse Comments Received patient from Nuclear Medicine. Patient is A&O x4. For VS please refer back to stress test assessment documentation. Patient is connected to cardiac care nurse. See Cardio- Neuro procedural notes for additional details. PIV flushes well. Reviewed POC and patient verbalizes understanding and consents to test. Lexiscan 0.4mg/5ml given. Stress test performed per protocol. nuclear monitoring technician administered the Cardiolite, following Lexiscan injection. Patient tolerated well and vitals returned to baseline. Transferred back to Nuclear Medicine via wheelchair with tech in stable condition. Stress ECG Conclusion NON ISCHEMIC CLINICAL RESPONSE NON ISCHEMIC ECG RESPONSE NON ISCHEMIC CARDIOLITE IMAGES EF >55% POOR IMAGE QUALITY NM EXAM: Myocardial Perfusion REST/STRESS Imaging Protocol: Rest Tc-99m/Stress Tc-99m 2 days Resting Data Rest SPECT myocardial perfusion imaging was performed in supine position 60 minutes following the intravenous injection of 10.2 mCi of Tc-99m Sestamibi. Time of rest injection: 12:35 Date: 01/29/2025 Time of rest imagin:35 Date: 01/29/2025 Administration Route: IV Administration Site: Right Arm Pharmacologic Stress Pharmacologic stress test was performed by injecting Regadenoson 0.4 mg IV push followed by the intravenous injection of 20.4 mCi of Tc-99m Sestamibi. Time of stress injection: 08:30 Date: 01/30/2025 Time of stress imagin:30 Date: 01/30/2025 Administration Route: IV Administration Site: Right Arm Gated Stress SPECT was performed 60 minutes after stress injection. The images were gated to evaluate regional wall motion and calculate left ventricular ejection fraction. Stress only was performed in the Supine position. Nuclear Conclusion NON ISCHEMIC CLINICAL RESPONSE NON ISCHEMIC ECG RESPONSE NON ISCHEMIC CARDIOLITE IMAGES EF >55% POOR IMAGE QUALITY
--- NOTE | 2025-01-30 16:49 | DVHPN2 ---
Consult Progress Note Date Seen: Jan 30, 2025 Subjective Review of Systems: CVS:Normal, RESPIRATORY:Abnormal, NEURO:Normal Objective vital signs Vital Sign Date Time Temp Pulse Resp B/P (MAP) Pulse Ox O2 Delivery O2 Flow Rate FiO2 01/30/25 13:23 62 24 100 01/30/25 13:01 98.3 150/80 (103) 98.3 01/30/25 10:00 Nasal Cannula 01/30/25 10:00 3 32 Total Intake and Output 01/29/25 01/29/25 01/30/25 15:00 23:00 07:00 Intake Total 450 ml 1000 ml Balance 450 ml 1000 ml medications Current Medications Medications Dose Ordered Sig/Alexander Route Start Time Stop Time Status Last Admin Dose Admin Diagnostic Test (Pha) 1 strip ACHS 01/29/25 11:30 01/30/25 11:20 1 STRIP Insulin Human Regular ACHS SC 01/29/25 11:30 01/29/25 11:30 6 UNITS Dextrose 50 ml UD PRN IV 01/29/25 07:15 Furosemide 40 mg DAILY IV 01/29/25 10:00 01/30/25 10:22 40 MG Aspirin 81 mg DAILY PO 01/29/25 10:00 01/30/25 10:19 81 MG Atorvastatin Calcium 40 mg HS PO 01/29/25 22:00 01/29/25 22:09 40 MG Acetaminophen 650 mg Q6HP PRN PO 01/29/25 07:15 01/29/25 20:22 650 MG Ondansetron HCl 4 mg Q4HP PRN IV 01/29/25 07:15 Nitroglycerin 0.4 mg Q5MINP PRN SL 01/29/25 07:15 Morphine Sulfate 2 mg Q30M PRN IV 01/29/25 07:15 01/29/25 15:24 2 MG Losartan Potassium 25 mg DAILY PO 01/29/25 10:00 01/30/25 10:19 25 MG Folic Acid 1 mg DAILY PO 01/29/25 10:00 01/30/25 10:21 1 MG Enoxaparin Sodium 40 mg DAILY SC 01/29/25 09:45 01/30/25 10:23 40 MG Thiamine HCl 100 mg DAILY PO 01/29/25 10:00 01/30/25 10:21 100 MG Multivitamins/ Minerals 1 tab DAILY PO 01/29/25 10:00 01/30/25 10:17 1 TAB Levetiracetam 500 mg BID PO 01/29/25 10:00 01/30/25 10:17 500 MG Clopidogrel Bisulfate 75 mg DAILY PO 01/30/25 10:00 01/30/25 10:00 75 MG Levalbuterol HCl 1.25 mg Q6HR NEB 01/29/25 12:00 01/30/25 13:33 1.25 MG Ipratropium [place] 0.5 mg Q6HR NEB 01/29/25 12:00 01/30/25 13:33 0.5 MG Budesonide 0.25 mg BID NEB 01/29/25 11:15 01/30/25 07:55 0.25 MG Metoprolol Succinate 25 mg DAILY PO 01/30/25 10:00 01/30/25 10:00 25 MG Acetaminophen/ Hydrocodone Bitart 1 tab Q6HPRN PRN PO 01/30/25 00:00 01/30/25 04:08 1 TAB Examination: LUNGS:Abnormal ([place] sounds), CVS:Normal, NEURO:Abnormal (Aphasic, left facial droop) laboratory and microbiology Laboratory Tests 01/30/25 05:20 Test 01/30/25 05:20 Range/Units Serum Glucose 110 H 74-106 mg/dL Problem List/Assessment/Plan Problem List/Assessment/Plan Rule out acute CVA Acute on chronic CHF exacerbation-NYHA class 3 NSTEMI likely type 2 Acute on chronic COPD exacerbation Acute chest pain, likely pleuritic COPD on 3 L home oxygen CAD with 3 [place] History of CVA with left-facial droop/aphasia Diabetes mellitus-A1c unknown Anemia likely microcytic secondary to alcohol use Leukopenia secondary to alcohol use Hypertension Chronic nicotine dependence Chronic alcohol dependence History of seizure disorder * Transthoracic echocardiogram revealed LVEF 60% with normal RV function * Cardiolite nuclear stress test, nonischemic * Troponin levels peaked at 99 ng/L. Latest BNP level 100s pg/mL Plan/Recommendation (Dr. Wells) Transthoracic echocardiogram revealed optimal LV function with normal RV function and no valve abnormalities. Cardiolite nuclear stress test is nonischemic. Continue dual antiplatelet therapy and lipid lowering agent. Monitor telemetry, keep K greater than 4, Mag greater than 2. DVT/VTE prophylaxis. Avoid nephrotoxic agents, discontinued Lasix and losartan therapy. Obtain Nephrology consultation. Counseled regarding compliance to medications, follow up with Cardiology as outpatient. Cardiac stable. There is no further cardiac workup indicated at this time. Kindly call if you need of further recommendations. Thank you for allowing us to participate in this patient's care. This medical document was created using an electronic medical record system with voice recognition software and computerized dictation system. Although this document has been carefully reviewed, there might still be some phonetic and typographical errors. Occasional wrong-word or ``sound-alike substitutions may have occurred due to the inherent limitations of voice recognition software. These areas are purely typographical due to imperfections of the software programs and do not reflect any compromise in the patient's medical care. Please read the chart carefully and recognize, using context, where these substitutions have occurred. Plan discussed with: Patient, Other Date of Service: Jan 30, 2025 Billing Provider: SRUTHI WATKINS Cardiology Common Codes: [id number] [facility](High SRUTHI WATKINS Jan 30, 2025 16:49
--- NOTE | 2025-01-30 18:16 | DVHINCON2 ---
Date of service: Jan 30, 2025 Referring Physician Lilia Caballero, nurse practitioner Reason for Consultation Acute kidney injury History of Present Illness Patient is 59-year-old female with past medical history significant for Diabetes, hypertension, CVA, slurred speech, COPD, seizures, CHF, sleep apnea, ETOH, colostomy was transferred from [facility] ER for elevated troponin. On admission patient noted to have elevated BUN creatinine nephrology is consulted for acute kidney injury Past Medical History Diabetes, hypertension, CVA, hyperlipidemia, COPD, home O2, seizures, CHF, sleep apnea, ETOH, hyperlipidemia Past Surgical History PTCA/PCI colostomy Allergies: Coded Allergies: NO KNOWN ALLERGIES (Unverified , 01/29/25) Home Meds Reported Medications Folic Acid (Folic Acid) 1 Mg Tab, 1 TAB PO DAILY 01/29/25 Nifedipine (Nifedipine Er) 30 Mg Tab, 1 TAB PO DAILY 01/29/25 Losartan Potassium (Losartan Potassium) 25 Mg Tab, 1 TAB PO DAILY 01/29/25 Current Medications Current Medications Medications (Trade) Dose Ordered Sig/Alexander Route PRN Reason Start Time Stop Time Status Last Admin Acetylcysteine (Mucomyst Inahalation 10%) 100 mg Q6HR PRN NEB SHORTNESS OF BREATH 01/30/25 20:45 01/30/25 21:02 DC Levetiracetam 100 ml @ 400 mls/hr DAILY IV 01/31/25 10:00 01/30/25 21:45 DC Acetylcysteine (Mucomyst Inahalation 10%) 100 mg Q6HR NEB 01/31/25 00:00 01/31/25 07:51 Levetiracetam 100 ml @ 400 mls/hr DAILY IV 01/30/25 22:00 01/31/25 09:22 Clopidogrel Bisulfate (Plavix) 75 mg DAILY PO 01/30/25 22:15 02/20/25 23:00 Lorazepam (Ativan Inj) 1 mg Q5MINP PRN IV SEIZURES 01/30/25 22:15 Sodium Chloride 1,000 ml @ 75 mls/hr [id number] IV 01/30/25 22:15 01/30/25 22:15 Family History: Cardiovascular disease G8 MOTHER Chronic obstructive pulmonary disease G8 MOTHER Diabetes mellitus G8 MOTHER Hypertension G8 MOTHER Review of Systems All 12 item review of systems reviewed with the patient nonsignificant except what is mentioned in the history of present illness H&P Exam Vital Signs/I&O Vital Sign Date Time Temp Pulse Resp B/P (MAP) Pulse Ox O2 Delivery O2 Flow Rate FiO2 01/31/25 09:00 97.9 71 16 120/75 (90) 100 97.9 01/31/25 08:00 Nasal Cannula* 3 32 Intake and Output 01/30/25 01/31/25 19:00 07:00 Intake Total 400 ml 700 ml Output Total 300 ml Balance 100 ml 700 ml Intake Oral 400 ml 0 ml IV Total 700 ml Output Urine Total 300 ml Physical Exam Patient lying comfortably in bed Lungs clear to auscultation bilaterally Cardiac exam regular rate and rhythm GI soft nontender, colostomy left lower quadrant was normal Extremities no clubbing cyanosis or edema Neuro hemiplegia, slurred speech Labs/Diagnostic Data Labs/Diagnostic Data Laboratory Tests Test 01/31/25 06:16 01/31/25 06:06 01/30/25 23:21 01/30/25 20:20 Range/Units POC Glucose 173 H 106 70-106 mg/dl White Blood Count 6.7 4.4-10.8 10^3/uL Red Blood Count 2.42 L 4.0-5.20 10^6/uL Hemoglobin 8.0 L 12.2-16.2 g/dL Hematocrit 25.0 #L 36.0-46.0 % Mean Corpuscular Volume 103.5 H 80.0-100.0 fL Mean Corpuscular Hemoglobin 33.2 H 28.0-32.0 pg Mean Corpuscular Hemoglobin Concent 32.0 32.0-36.0 g/dL Red Cell Distribution Width 16.0 H 11.8-14.3 % Platelet Count 165 140-450 10^3/uL Mean Platelet Volume 8.4 6.9-10.8 fL Neutrophils (%) (Auto) 95.5 H 37.0-80.0 % Lymphocytes (%) (Auto) 3.0 L 10.0-50.0 % Monocytes (%) (Auto) 1.5 0.0-12.0 % Eosinophils (%) (Auto) 0.0 0.0-7.0 % Basophils (%) (Auto) 0.0 0.0-2.0 % Neutrophils # (Auto) 6.4 1.6-8.6 10 ^3/uL Lymphocytes # (Auto) 0.2 L 0.4-5.4 10 ^3/uL Monocytes # (Auto) 0.1 0-1.3 10 ^3/uL Eosinophils # (Auto) 0 0-0.8 10 ^3/uL Basophils # (Auto) 0 0-0.2 10 ^3/uL Nucleated Red Blood Cells 0.2 % Sodium Level 147 #H 136-145 mmol/L Potassium Level 4.3 3.5-5.1 mmol/L Chloride Level 112 H 98-107 mmol/L Carbon Dioxide Level 24 20-31 mmol/L Anion Gap 11 5-15 Blood Urea Nitrogen 29 H 9-23 mg/dL Creatinine 1.90 H 0.550-1.02 mg/dL Glomerular Filtration Rate Calc 30 >90 mL/min BUN/Creatinine Ratio 15.3 10.0-20.0 Serum Glucose 161 H 74-106 mg/dL Calcium Level 7.3 L 8.7-10.4 mg/dL Magnesium Level 1.9 1.6-2.6 mg/dL Troponin I High Sensitivity 64 *H </=34 ng/L Test 01/30/25 18:59 01/30/25 17:22 01/30/25 14:07 01/30/25 12:48 Range/Units Hemoglobin 9.3 L 12.2-16.2 g/dL Hematocrit 28.6 L 36.0-46.0 % Sodium Level 141 136-145 mmol/L Potassium Level 3.6 3.5-5.1 mmol/L Chloride Level 108 H 98-107 mmol/L Carbon Dioxide Level 24 20-31 mmol/L Anion Gap 9 5-15 Blood Urea Nitrogen 25 H 9-23 mg/dL Creatinine 2.31 H 0.550-1.02 mg/dL Glomerular Filtration Rate Calc 24 >90 mL/min BUN/Creatinine Ratio 10.8 10.0-20.0 Serum Glucose 212 H 74-106 mg/dL Calcium Level 7.6 L 8.7-10.4 mg/dL Magnesium Level 1.8 1.6-2.6 mg/dL Total Bilirubin 0.4 0.2-1.0 mg/dL Aspartate Amino Transferase (AST) 23 13-40 U/L Alanine Aminotransferase (ALT) 20 7-40 U/L Alkaline Phosphatase 77 46-116 U/L Troponin I High Sensitivity 61 *H 61 *H 58 *H </=34 ng/L Total Protein 7.2 5.7-8.2 g/dL Albumin 3.9 3.2-4.8 g/dL POC Glucose 98 70-106 mg/dl Vitamin D 25-Hydroxy 9.4 L 30.0-100 ng/mL B-Type Natriuretic Peptide 180.87 0-100 pg/mL Test 01/30/25 12:18 01/30/25 11:19 01/30/25 06:03 01/30/25 05:20 Range/Units Blood Gas Specimen Type Arterial Blood Gas Sample Site Right radial Blood Gas Patient Temperature 37.0 Arterial Blood Date Drawn [id number] Arterial Blood pH 7.304 L 7.350-7.450 Arterial Blood Partial Pressure CO2 52.9 H 32.0-45.0 mmHg Arterial Blood Partial Pressure O2 109.9 H 83.0-108.0 mmHg Arterial Blood HCO3 25.7 21.0-28.0 mmol/L Arterial Blood Oxygen Saturation 97.9 94.0-98.0 % Arterial Blood Base Excess -1.0 -2.0-3.0 mmol/L Arterial Blood Oxyhemoglobin 96.9 94.0-98.0 % Arterial Blood Carboxyhemoglobin 0.7 0.5-1.5 % Arterial Blood Methemoglobin 0.3 0.0-1.5 % Nirav Test Yes Blood Gas Total Hemoglobin 9.30 L 12.0-16.0 g/dL Blood Gas Liter Flow 3.00 Blood Gas Modality Nasal cannula FiO2 % 32.0 POC Glucose 128 H 116 H 70-106 mg/dl White Blood Count 7.0 4.4-10.8 10^3/uL Red Blood Count 2.52 L 4.0-5.20 10^6/uL Hemoglobin 8.4 L 12.2-16.2 g/dL Hematocrit 26.3 L 36.0-46.0 % Mean Corpuscular Volume 104.0 H 80.0-100.0 fL Mean Corpuscular Hemoglobin 33.4 H 28.0-32.0 pg Mean Corpuscular Hemoglobin Concent 32.1 32.0-36.0 g/dL Red Cell Distribution Width 16.3 H 11.8-14.3 % Platelet Count 166 140-450 10^3/uL Mean Platelet Volume 8.1 6.9-10.8 fL Neutrophils (%) (Auto) 75.0 37.0-80.0 % Lymphocytes (%) (Auto) 14.3 10.0-50.0 % Monocytes (%) (Auto) 10.3 0.0-12.0 % Eosinophils (%) (Auto) 0.3 0.0-7.0 % Basophils (%) (Auto) 0.1 0.0-2.0 % Neutrophils # (Auto) 5.3 1.6-8.6 10 ^3/uL Lymphocytes # (Auto) 1.0 0.4-5.4 10 ^3/uL Monocytes # (Auto) 0.7 0-1.3 10 ^3/uL Eosinophils # (Auto) 0 0-0.8 10 ^3/uL Basophils # (Auto) 0 0-0.2 10 ^3/uL Nucleated Red Blood Cells 0.1 % Sodium Level 143 136-145 mmol/L Potassium Level 3.9 3.5-5.1 mmol/L Chloride Level 109 H 98-107 mmol/L Carbon Dioxide Level 27 20-31 mmol/L Anion Gap 7 5-15 Blood Urea Nitrogen 29 H 9-23 mg/dL Creatinine 2.26 #H 0.550-1.02 mg/dL Glomerular Filtration Rate Calc 24 >90 mL/min BUN/Creatinine Ratio 12.8 10.0-20.0 Serum Glucose 110 H 74-106 mg/dL Calcium Level 7.6 L 8.7-10.4 mg/dL Phosphorus Level 4.0 2.4-5.1 mg/dL Magnesium Level 2.1 1.6-2.6 mg/dL Troponin I High Sensitivity 61 *H </=34 ng/L Triglycerides Level 115 < 150 mg/dL Cholesterol Level 285 H < 200 mg/dL LDL Cholesterol 66 < 100 mg/dL HDL Cholesterol 179 H 40-59 mg/dL Parathyroid Hormone (Intact) 325.8 H 18.4-80.1 pg/mL Test 01/29/25 22:17 01/29/25 17:50 01/29/25 17:28 01/29/25 12:00 Range/Units POC Glucose 142 H 64 L 58 L 70-106 mg/dl Prothrombin Time 10.3 9.3-11.8 sec Prothrombin Time INR 0.97 0.9-1.15 Activated Partial Thromboplast Time 23.1 L 24.5-34.5 SEC Test 01/29/25 11:42 01/29/25 08:00 01/29/25 07:55 01/29/25 05:20 Range/Units POC Glucose 298 H 70-106 mg/dl Urine Color Light-yellow Yellow Urine Clarity Clear Clear Urine pH 6.0 5.0-9.0 Urine Specific [place] 1.016 1.001-1.035 Urine Protein 1+ H Negative Urine Ketones Negative Negative Urine Blood Trace H Negative /uL Urine Nitrite Negative Negative Urine Bilirubin Negative Negative Urine Urobilinogen Normal Negative mg/dL Urine Leukocyte Esterase Negative Negative /uL Urine RBC <1 0 - 4 /hpf Urine Microscopic WBC 1 0-5 /HPF Urine Squamous Epithelial Cells Few <5 /hpf Urine Bacteria None seen None Seen /hpf Urine Glucose 2+ H Normal mg/dL Urine Opiates Screen Pos NEGATIVE Urine Fentanyl Screen Neg NEGATIVE Urine Barbiturates Screen Neg NEGATIVE Urine Phencyclidine Screen Neg NEGATIVE Urine Amphetamines Screen Neg NEGATIVE Urine Benzodiazepines Screen Neg NEGATIVE Urine Cocaine Screen Neg NEGATIVE Urine Cannabinoids Screen Neg NEGATIVE Hemoglobin A1c 5.2 <5.7 % A1C Sodium Level 145 136-145 mmol/L Potassium Level 3.3 L 3.5-5.1 mmol/L Chloride Level 109 H 98-107 mmol/L Carbon Dioxide Level 26 20-31 mmol/L Anion Gap 10 5-15 Blood Urea Nitrogen 24 H 9-23 mg/dL Creatinine 1.43 H 0.550-1.02 mg/dL Glomerular Filtration Rate Calc 42 >90 mL/min BUN/Creatinine Ratio 16.8 10.0-20.0 Serum Glucose 157 H 74-106 mg/dL Calcium Level 7.5 L 8.7-10.4 mg/dL Troponin I High Sensitivity 99 *H </=34 ng/L Triglycerides Level 96 < 150 mg/dL Cholesterol Level 279 H < 200 mg/dL LDL Cholesterol 65 < 100 mg/dL HDL Cholesterol 182 H 40-59 mg/dL Thyroid Stimulating Hormone (TSH) 3.10 0.55-4.78 uIU/mL Test 01/29/25 03:25 01/29/25 02:40 01/29/25 02:22 Range/Units Troponin I High Sensitivity 98 *H 97 *H </=34 ng/L Blood Gas Specimen Type Venous Blood Gas Sample Site Vbg - n/a Blood Gas Patient Temperature 37.0 Arterial Blood Date Drawn [id number] Nirav Test N/a Venous Blood pH 7.291 L 7.320-7.430 Venous Blood pCO2 at Patient Temp 57.8 *H 38.0-54.0 mmHg Venous Blood pO2 at Patient Temp 45.3 23.0-48.0 mmHg Venous Blood HCO3 27.2 22.0-29.0 mmol/L Venous Blood Base Excess -0.6 -2.0-3.0 mmol/L Blood Gas Liter Flow 2.00 Blood Gas Modality Nasal cannula FiO2 % 28.0 Blood Gas Critical Value Read Back Yes Blood Gas Notified Whom Md vipul stein Blood Gas Notified Time [id number] Blood Gas Notified By Rt gianna cano White Blood Count 7.3 4.4-10.8 10^3/uL Red Blood Count 2.57 L 4.0-5.20 10^6/uL Hemoglobin 8.6 L 12.2-16.2 g/dL Hematocrit 26.1 L 36.0-46.0 % Mean Corpuscular Volume 101.6 H 80.0-100.0 fL Mean Corpuscular Hemoglobin 33.4 H 28.0-32.0 pg Mean Corpuscular Hemoglobin Concent 32.9 32.0-36.0 g/dL Red Cell Distribution Width 16.6 H 11.8-14.3 % Platelet Count 161 140-450 10^3/uL Mean Platelet Volume 8.3 6.9-10.8 fL Neutrophils (%) (Auto) 75.8 37.0-80.0 % Lymphocytes (%) (Auto) 13.9 10.0-50.0 % Monocytes (%) (Auto) 9.7 0.0-12.0 % Eosinophils (%) (Auto) 0.4 0.0-7.0 % Basophils (%) (Auto) 0.2 0.0-2.0 % Neutrophils # (Auto) 5.6 1.6-8.6 10 ^3/uL Lymphocytes # (Auto) 1.0 0.4-5.4 10 ^3/uL Monocytes # (Auto) 0.7 0-1.3 10 ^3/uL Eosinophils # (Auto) 0 0-0.8 10 ^3/uL Basophils # (Auto) 0 0-0.2 10 ^3/uL Nucleated Red Blood Cells 0.0 % Sodium Level 143 136-145 mmol/L Potassium Level 3.0 L 3.5-5.1 mmol/L Chloride Level 111 H 98-107 mmol/L Carbon Dioxide Level 26 20-31 mmol/L Anion Gap 6 5-15 Blood Urea Nitrogen 18 9-23 mg/dL Creatinine 1.36 H 0.550-1.02 mg/dL Glomerular Filtration Rate Calc 45 >90 mL/min BUN/Creatinine Ratio 13.2 10.0-20.0 Serum Glucose 105 74-106 mg/dL Calcium Level 7.8 L 8.7-10.4 mg/dL Magnesium Level 2.1 1.6-2.6 mg/dL Total Bilirubin 0.7 0.2-1.0 mg/dL Aspartate Amino Transferase (AST) 27 13-40 U/L Alanine Aminotransferase (ALT) 25 7-40 U/L Alkaline Phosphatase 82 46-116 U/L B-Type Natriuretic Peptide 479.05 0-100 pg/mL Total Protein 7.2 5.7-8.2 g/dL Albumin 4.0 3.2-4.8 g/dL Vitamin B12 Level 564 211-911 pg/mL Folic Acid 19.13 >5.38 ng/mL Free Thyroxine (T4) Calculated 0.96 0.89-1.76 ng/dL Microbiology Date/Time Source Procedure Growth Status 01/29/25 13:40 Nose MRSA Screen - Final Complete Assessment Acute kidney injury superimposed Chronic Kidney Disease secondary hemodynamic mediated Acute on chronic respiratory failure, O2 supplements Acute on chronic CHF exacerbation-NYHA class 3 NSTEMI Acute on chronic COPD exacerbation Diabetes mellitus type II Anemia of chronic kidney disease Hypertension seizures disorder REC: Closely monitor fluid and electrolytes Avoid nephrotoxic medication Strict I&Os Check urine electrolytes and protein excretion Check kidney ultrasound I agree with diuresis Blood pressure control We will continue to follow Patient seen and examined by myself. I discussed my plan of care with the patient and primary nurse at the bedside I would like to thank Lilia for the consult, will follow up Plan discussed with: Patient ANJALI HAWLEY MD Jan 30, 2025 18:16
--- NOTE | 2025-01-30 20:24 | DVH ---
RENAL ULTRASOUND CLINICAL HISTORY: ro TECHNIQUE: Multiple grayscale ultrasound images were obtained through the kidneys and urinary bladder. COMPARISON: CT ABDOMEN PELVIS WITH on DOS: 01/27/25, CT ABDOMEN PELVIS WITH on DOS: 01/06/25, CT ABDOMEN PELVIS WITHOUT on DOS: 09/05/24 FINDINGS: Right kidney: Measures 10.9 cm. There is mild hydronephrosis. Left kidney: Measures 9.5 cm. No hydronephrosis. Small cyst in the lower pole left kidney measuring 2.6 cm. Urinary bladder: Unremarkable. Prevoid volume is 45 mL. IMPRESSION: 1. Mild right hydronephrosis. 2. No left hydronephrosis. 3. Small left lower pole renal cyst.
[2025-01-30 20:42] LABS: Hematocrit 28.6 % (36.0-46.0); Hemoglobin 9.3 g/dL (12.2-16.2)
[2025-01-30] MEDS ORDERED: ACETYLCYSTEINE 10 %(100MG/ML) SOL 4ML NEB PRN (20:45)
[2025-01-30 20:54] LABS: Alanine Aminotransferase 20 U/L (7-40); Albumin 3.9 g/dL (3.2-4.8); Alkaline Phosphatase 77 U/L (46-116); Anion Gap 9 (5-15); BUN/Creatinine Ratio 10.8 (10.0-20.0); Bilirubin, Total 0.4 mg/dL (0.2-1.0); Carbon Dioxide 24 mmol/L (20-31); Magnesium 1.8 mg/dL (1.6-2.6); Potassium 3.6 mmol/L (3.5-5.1); Sodium 141 mmol/L (136-145); Total Protein 7.2 g/dL (5.7-8.2)
--- NOTE | 2025-01-30 21:05 | DVH ---
EXAM: XY CHEST PORTABLEHISTORY: CP TECHNIQUE: 1 view of the chest COMPARISON: XY CHEST PORTABLE on DOS: 01/30/25 FINDINGS/IMPRESSION: LUNGS: No pleural effusion, consolidation, or pneumothorax. MEDIASTINUM: [id number] cardiomegaly. Central pulmonary vascular congestion. Correlate for volume overload. BONES: No acute osseous abnormality. OTHER: None.
[2025-01-30 21:09] LABS: Blood Urea Nitrogen 25 mg/dL (9-23); Calcium 7.6 mg/dL (8.7-10.4); Chloride 108 mmol/L (98-107); Glucose 212 mg/dL (74-106)
--- NOTE | 2025-01-30 21:11 | DVHINCON2 ---
Date of service: Jan 30, [address] Dick Crowe Reason for Consultation Possible stroke History of Present Illness This is a difficult consultation, the patient is aphasic, the number listed in the chart is easily not use or no answer, I got her her sister number from her directly however the phone conversation was interrupted, I have long time spent with her, I obtained the following information Ms. Bustos is a 59 years old right-handed female with a history of hypertension, diabetes, coronary artery disease, congestive heart failure, multiple strokes, COPD, seizure, sleep apnea, she is transferred from the [facility] on 01/29/2025 with a chief complaint of elevated troponin level, shortness breath, but patient also has a new stroke syndrome. At this time, the patient is alert, able to understand spoken language but is aphasic/non-vocal, we have tried to talk to her but failed to obtain useful information At home, she called her sister when she was in her walker outside the home, because she could not talk, and voice was strange, she suspected that she had another stroke. Her sister called 911 and when EMS came over, the patient was found to have shortness breath, she was brought to the [facility] and then transferred to the [facility]. In the morning on 01/30/2025, her nurse noticed right facial drooping, in the evening on 01/30/2025, the patient has had code assistance because of respiratory diffuse, and after that the patient can not speak She has had total nine strokes from 2018, during previous strokes, the patient has had problem with speech, not able to move, she has had both side of her extremity affected by the strokes, she typically had good recovery, her sister is not aware, but from our record, she was on Lipitor 40 mg daily, aspirin 81 mg daily at home Since early 2023, the patient's has had three seizures, with the last one around 09/2024. During the seizure, the patient has fall, and not able to move. Her sister does not know, and the patient can not tell me if he was on seizure medication. In the hospital, she was given Keppra He has sleep apnea, but there has problem with her CPAP machine [phone] not in use. [phone] no answer. [phone] UDS, 01/29/2025: Opiates Urinalysis, 01/29/2025: Unremarkable CBC, 01/30/2025: Respiratory acidosis CBC/HB/PLT/MCV, 01/30/2025: 7/8.4/166/104 BUN/CR, 01/30/2025: 29/2.26 GFR, 01/30/2025: 24 HGB A1c, 01/29/25: 5.2 Liver function tests, 01/29/2025: Unremarkable TG/HDL/LDL/HDL, 01/30/2025: 115/285/66/179 Vitamin B12, 01/29/2025: Family 64 Folic acid, 01/29/2025: 19.13 TSH, 01/29/25: 3.1 Echocardiogram, 01/29/2025: Technically good study. Sinus rhythm. Mild aortic root enlargement. Valves are normal. EF of 60% with normal RV function. Mild TR. No pericardial effusion masses or vegetations CT head 01/30/2025: Inconspicuous area of loss of lance-white differentiation of the right parietal lobe to right posterior temporal lobe. Underlying acute infarction not excluded MR head, 01/30/2025: Reports pending, I saw multiple strokes in bilateral hemispheres, she also has chronic strokes in both hemispheres Past Medical History Hypertension, diabetes, coronary artery disease, congestive heart failure, stroke, COPD, seizure, sleep apnea Past Surgical History Colostomy, PTCA Family History: Cardiovascular disease G8 MOTHER Chronic obstructive pulmonary disease G8 MOTHER Diabetes mellitus G8 MOTHER Hypertension G8 MOTHER Family History Hypertension, diabetes, heart disease COPD Social History She smokes, she uses alcohol, but denies a history of drug abuse Allergies: Coded Allergies: NO KNOWN ALLERGIES (Unverified , 01/29/25) Home Meds Reported Medications Folic Acid (Folic Acid) 1 Mg Tab, 1 TAB PO DAILY 01/29/25 Nifedipine (Nifedipine Er) 30 Mg Tab, 1 TAB PO DAILY 01/29/25 Losartan Potassium (Losartan Potassium) 25 Mg Tab, 1 TAB PO DAILY 01/29/25 Current Medications Current Medications Medications (Trade) Dose Ordered Sig/Alexander Route PRN Reason Start Time Stop Time Status Last Admin Atorvastatin Calcium (Lipitor) 40 mg HS PO 01/29/25 22:00 01/29/25 22:09 Clopidogrel Bisulfate (Plavix) 75 mg DAILY PO 01/30/25 10:00 01/30/25 10:00 Metoprolol Succinate (Toprol Xl) 25 mg DAILY PO 01/30/25 10:00 01/30/25 10:00 Acetaminophen/ Hydrocodone Bitart (Edison 5/325MG Tab) 1 tab Q6HPRN PRN PO MODERATE PAIN (4-6 PAIN SCALE) 01/30/25 00:00 01/30/25 17:33 Acetylcysteine (Mucomyst Inahalation 10%) 100 mg Q6HR PRN NEB SHORTNESS OF BREATH 01/30/25 20:45 UNV Levetiracetam 100 ml @ 400 mls/hr DAILY IV 01/31/25 10:00 UNV Review of Systems As above, the other systems are negative Vital Signs Vital Signs Date Time Temp Pulse Resp B/P (MAP) Pulse Ox O2 Delivery O2 Flow Rate FiO2 01/30/25 19:48 78 18 100 01/30/25 19:48 Nasal Cannula* 3 32 01/30/25 17:00 97.9 150/85 (106) 97.9 Physical Exam GENERAL EXAM: General: the patient is well developed and nourished. No acute distress. HEENT: Normocephalic, neck is supple, no carotid bruits. No mass. RESPIRATORY: Normal respiratory effort with symmetrical lung expansion. Lungs clear to auscultation. CARDIOVASCULAR: Regular rate and rhythm with no murmurs. S1, S2. ABDOMEN: Soft, nontender, normal bowel sound, she has a colostomy bag NEUROLOGICAL: MENTAL STATUS: Awake and alert. Follows commands SPEECH, LANGUAGE, HIGHER CORTICAL FUNCTION: She has expressive aphasia, she does not vocalize CRANIAL NERVES: #2: Intact visual humphrey to confrontation. The optic discs were sharp. #3,4,6: Pupils are equal, round and reactive. EOMs full and conjugate. #5: Facial sensation intact in all three divisions bilaterally. Mandibular strength intact. #7: Right facial weakness of upper motor neuron pattern #8: Hearing grossly normal to voice. #9,10: Uvula and soft palate rise in the midline. Swallow and voice are normal. #11: Trapezius and sternomastoid strength intact bilaterally. #12: Tongue midline. No fasciculations or atrophy. SENSATION: Sensation to touch and pinprick is normal. MOTOR: Normal tone in the upper and lower extremity. Normal muscle bulk. No fasciculations. No abnormal movements or posturing. Muscle strength of the major groups in the upper left is 5/5. Muscle strength of the major groups in the right extremities is 4/5 with right arm drift REFLEXES: Deep tendon reflexes are symmetrical. No pathological reflexes. CEREBELLAR/COORDINATION: Finger to nose is unremarkable bilaterally GAIT/STATION: deferred. Labs/Diagnostic Data Labs Test 01/30/25 20:20 01/30/25 18:59 01/30/25 14:07 01/30/25 12:48 Range/Units POC Glucose 106 70-106 mg/dl Hemoglobin 9.3 L 12.2-16.2 g/dL Hematocrit 28.6 L 36.0-46.0 % Troponin I High Sensitivity 61 *H </=34 ng/L B-Type Natriuretic Peptide 180.87 0-100 pg/mL Test 01/30/25 12:18 01/30/25 05:20 01/29/25 12:00 01/29/25 08:00 Range/Units Blood Gas Specimen Type Arterial Blood Gas Sample Site Right radial Blood Gas Patient Temperature 37.0 Arterial Blood Date Drawn [id number] Arterial Blood pH 7.304 L 7.350-7.450 Arterial Blood Partial Pressure CO2 52.9 H 32.0-45.0 mmHg Arterial Blood Partial Pressure O2 109.9 H 83.0-108.0 mmHg Arterial Blood HCO3 25.7 21.0-28.0 mmol/L Arterial Blood Oxygen Saturation 97.9 94.0-98.0 % Arterial Blood Base Excess -1.0 -2.0-3.0 mmol/L Arterial Blood Oxyhemoglobin 96.9 94.0-98.0 % Arterial Blood Carboxyhemoglobin 0.7 0.5-1.5 % Arterial Blood Methemoglobin 0.3 0.0-1.5 % Nirav Test Yes Blood Gas Total Hemoglobin 9.30 L 12.0-16.0 g/dL Blood Gas Liter Flow 3.00 Blood Gas Modality Nasal cannula FiO2 % 32.0 White Blood Count 7.0 4.4-10.8 10^3/uL Red Blood Count 2.52 L 4.0-5.20 10^6/uL Mean Corpuscular Volume 104.0 H 80.0-100.0 fL Mean Corpuscular Hemoglobin 33.4 H 28.0-32.0 pg Mean Corpuscular Hemoglobin Concent 32.1 32.0-36.0 g/dL Red Cell Distribution Width 16.3 H 11.8-14.3 % Platelet Count 166 140-450 10^3/uL Mean Platelet Volume 8.1 6.9-10.8 fL Neutrophils (%) (Auto) 75.0 37.0-80.0 % Lymphocytes (%) (Auto) 14.3 10.0-50.0 % Monocytes (%) (Auto) 10.3 0.0-12.0 % Eosinophils (%) (Auto) 0.3 0.0-7.0 % Basophils (%) (Auto) 0.1 0.0-2.0 % Neutrophils # (Auto) 5.3 1.6-8.6 10 ^3/uL Lymphocytes # (Auto) 1.0 0.4-5.4 10 ^3/uL Monocytes # (Auto) 0.7 0-1.3 10 ^3/uL Eosinophils # (Auto) 0 0-0.8 10 ^3/uL Basophils # (Auto) 0 0-0.2 10 ^3/uL Nucleated Red Blood Cells 0.1 % Phosphorus Level 4.0 2.4-5.1 mg/dL Triglycerides Level 115 < 150 mg/dL Cholesterol Level 285 H < 200 mg/dL LDL Cholesterol 66 < 100 mg/dL HDL Cholesterol 179 H 40-59 mg/dL Parathyroid Hormone (Intact) 325.8 H 18.4-80.1 pg/mL Prothrombin Time 10.3 9.3-11.8 sec Prothrombin Time INR 0.97 0.9-1.15 Activated Partial Thromboplast Time 23.1 L 24.5-34.5 SEC Urine Color Light-yellow Yellow Urine Clarity Clear Clear Urine pH 6.0 5.0-9.0 Urine Specific [place] 1.016 1.001-1.035 Urine Protein 1+ H Negative Urine Ketones Negative Negative Urine Blood Trace H Negative /uL Urine Nitrite Negative Negative Urine Bilirubin Negative Negative Urine Urobilinogen Normal Negative mg/dL Urine Leukocyte Esterase Negative Negative /uL Urine RBC <1 0 - 4 /hpf Urine Microscopic WBC 1 0-5 /HPF Urine Squamous Epithelial Cells Few <5 /hpf Urine Bacteria None seen None Seen /hpf Urine Glucose 2+ H Normal mg/dL Urine Opiates Screen Pos NEGATIVE Urine Fentanyl Screen Neg NEGATIVE Urine Barbiturates Screen Neg NEGATIVE Urine Phencyclidine Screen Neg NEGATIVE Urine Amphetamines Screen Neg NEGATIVE Urine Benzodiazepines Screen Neg NEGATIVE Urine Cocaine Screen Neg NEGATIVE Urine Cannabinoids Screen Neg NEGATIVE Test 01/29/25 07:55 01/29/25 05:20 01/29/25 02:40 01/29/25 02:22 Range/Units Hemoglobin A1c 5.2 <5.7 % A1C Thyroid Stimulating Hormone (TSH) 3.10 0.55-4.78 uIU/mL Venous Blood pH 7.291 L 7.320-7.430 Venous Blood pCO2 at Patient Temp 57.8 *H 38.0-54.0 mmHg Venous Blood pO2 at Patient Temp 45.3 23.0-48.0 mmHg Venous Blood HCO3 27.2 22.0-29.0 mmol/L Venous Blood Base Excess -0.6 -2.0-3.0 mmol/L Blood Gas Critical Value Read Back Yes Blood Gas Notified Whom Md vipul stein Blood Gas Notified Time [id number] Blood Gas Notified By Rt gianna cano Vitamin B12 Level 564 211-911 pg/mL Folic Acid 19.13 >5.38 ng/mL Free Thyroxine (T4) Calculated 0.96 0.89-1.76 ng/dL Microbiology Date/Time Source Procedure Growth Status 01/29/25 13:40 Nose MRSA Screen - Final Complete Assessment Acute multiple strokes Chronic bilateral strokes Acute expressive aphasia secondary to acute stroke Right mild hemiparesis secondary to acute stroke Reports seizure disorder Sleep apnea Alcohol abuse Nicotine abuse Plan/Recommendation Monitoring Supportive treatment Telemetry NPO for now EEG MARISELA Carotid Doppler Aspirin 81 mg daily Plavix 75 mg daily for 21 days Lipitor 40 mg daily Keppra 500 mg daily IV fluid Thiamine supplementation Folic acid supplementation Speech pathology evaluation Need to quit alcohol and tobacco completely Consider CPAP treatment later More recommendation per clinical course Progress: Poor Time spent is more than 75 minutes This medical document was created using an electronic medical record system with [employer] dictation system. Although this document has been carefully reviewed, there may still be some phonetic and typographical errors. These areas are purely typographical due to imperfections of the software programs, and do not reflect any compromise in the patient's medical care. Plan discussed with: Other BENOIT SALCEDO MD Jan 30, 2025 21:11
[2025-01-30] MEDS: IPRATROPIUM BROM 0.5 MG/2.5ML INH SOL NEB ONE (21:18)
[2025-01-30] MEDS: ALBUTEROL SULF 2.5 MG/0.5ML(0.5%) NEB SOLN NEB ONE (21:18)
[2025-01-30] MEDS: ACETYLCYSTEINE 10 %(100MG/ML) SOL 4ML NEB ONE (21:19)
[2025-01-30] MEDS: methylPREDNISolone SOD SUCC 125 MG/2 ML VL IV ONE (21:42)
[2025-01-30] MEDS: MORPHINE SULFATE 4 MG/ML SYR/VIAL IV ONE (21:51)
[2025-01-30] MEDS: levETIRAcetam 500 mg/100ml 100 ML IV SCH (22:00)
[2025-01-30] MEDS ORDERED: LORazepam 2MG/ML-1ML VIAL IV PRN (22:15)
[2025-01-30] MEDS: SODIUM CHLORIDE 0.9% 1,000 ML IV SCH (22:15)
--- NOTE | 2025-01-30 23:38 | DVH ---
US CAROTID DOPPLER CLINICAL INDICATION: cva TECHNIQUE: Multiple grayscale, color Doppler and spectral Doppler ultrasound images were obtained throughout both carotid systems. COMPARISON: CT STROKE CTH on DOS: 01/30/25 FINDINGS: RIGHT: CCA PSV: 94 cm/s ECA PSV: 80 cm/s ICA PSV: 144 cm/s ICA EDV: 74 cm/s ICA/CCA Ratio: 1.5 Vertebral artery: Patent, antegrade flow. Grayscale images demonstrate calcified plaque at the carotid bifurcation. No visible stenosis. Spectral analysis demonstrates no hemodynamically significant CCA or ICA stenosis. LEFT: CCA PSV: 106 cm/s ECA PSV: 76 cm/s ICA PSV: 111 cm/s ICA EDV: 46 cm/s ICA/CCA Ratio: 1 Vertebral artery: Patent, antegrade flow. Grayscale images demonstrate calcified plaque at the carotid bifurcation. No visible stenosis. Spectral analysis demonstrates no hemodynamically significant CCA or ICA stenosis. IMPRESSION: 1. No evidence of hemodynamically significant CCA or ICA stenosis.
[2025-01-31] VITALS (18 sets, daily range): BP systolic 117–170; BP diastolic 47–93; PULSE 67–82; RESP 16–20; TEMP 97.4–98.8; O2SAT 93–100
[2025-01-31] MEDS: ACETYLCYSTEINE 10 %(100MG/ML) SOL 4ML NEB SCH
--- NOTE | 2025-01-31 07:03 | RESUS ---
CODE ASSIST ASSESSSMENT Initial Information Code Assist Date: Jan 30, 2025 Code Assist Time: 20:15 Location of Arrest: ICU ([place]) Room # 295A Provider Name DR GAO Time Notified: 20:15 Time PMD returned call: 20:16 Crash Cart Opened and Supplies: No Situation Staff concerned/worried, speci: Other (STRIDOS) Situation comment: AT BEDSIDE FOR SCHEDULED MED NEB TX. UPON PLACING PATIENT ONTO TX, PATIENT WAS NOTED TO HAVE DIFFICULTLY SPEAKING WITH INSPIRATORY STRIDOR HEARD OVER NECK. PATIENT MAINTAINED SPO2 OF 98-100% WITH RR OF 20-22. ALBERT HERMAN NOTIFIED AND CAME TO BEDSIDE FOR PATIENT ASSESSMENT / EKG, ATTEMPTED TO CONTACT HOSPITALIST BUT WAS UNABLE TO LOCATE. RAPID RESPONSE ULTIMATELY CALLED. PER MD GAO, WILL HOLD COOL AEROSOL / FURTHER INTERVENTION UNTIL CXR IS COMPLETED. AWAITING RESPIRATORY ORDERS AT THIS TIME. PATIENT MAINTAINING SPO2 OF 99% ON 3L NC. PLAN OF CARE IS ONGOING Background Background: 59 year old female with PMHx cardiac stents-x3 presents to the ED via EMS with a chief complaint of shortness of breath. Per EMS, patient was transferred from [facility] due to elevated troponin levels, was transferred for higher level of care/N-STEMI. Patient was started on Heparin drip prior to ED arrival. Patient states she went to ED due to shortness of breath, is on home O2. PT NONE VERBAL SINCE YESTERDAY WITH LEFT FACIAL SWELLING SINCE ABOUT 10 AM, TONIGHT DEVELOPED STRIDORS Assessment Temperature (Fahrenheit): 97.4 Blood Pressure Systolic: 122 Blood Pressure Diastolic: 77 Respiratory Rate: 18 O2 Sat by Pulse Oximetry: 100 Assessment comment: PT AWAKE NONEVERBAL WRITES NEEDS, + RHONCHI TO OSCULTATION Recommendations/Interventions Procedures: Accu check (106), CXR Portable Outcome Outcome: Problem Resolved Team Members Team Members GUS SPARKS RN HS, MYLES RN, JAKE RN , SEBASTIEN RN RICHIE RN, BATSHEVA RN, ELIZABET RT critical care time 45 mins Date of Service: Jan 30, 2025 Billing Provider: NICK CARBAJAL MD Common Visit Codes: [id number] CARE 30-74 MIN GUS ALFRED Jan 31, 2025 07:03 NICK CARBAJAL MD Jan 31, 2025 10:40
[2025-01-31 07:37] LABS: Hematocrit 25.0 % (36.0-46.0); Hemoglobin 8.0 g/dL (12.2-16.2); Mean Corpuscular Hemoglobin 33.2 pg (28.0-32.0); Mean Corpuscular Volume 103.5 fL (80.0-100.0); Nucleated Red Blood Cells % 0.2 %
[2025-01-31 08:49] LABS: Potassium 4.3 mmol/L (3.5-5.1)
[2025-01-31 08:50] LABS: Anion Gap 11 (5-15); Carbon Dioxide 24 mmol/L (20-31)
[2025-01-31 08:55] LABS: BUN/Creatinine Ratio 15.3 (10.0-20.0)
[2025-01-31 08:56] LABS: Blood Urea Nitrogen 29 mg/dL (9-23); Calcium 7.3 mg/dL (8.7-10.4); Chloride 112 mmol/L (98-107); Glucose 161 mg/dL (74-106); Magnesium 1.9 mg/dL (1.6-2.6); Sodium 147 mmol/L (136-145)
[2025-01-31] MEDS ORDERED: levETIRAcetam 500 mg/100ml 100 ML IV SCH (10:00)
--- NOTE | 2025-01-31 11:20 | DVHPN2 ---
Progress Note Date Seen: Jan 31, 2025 Medical Necessity Reason Pt with a Central, PICC or Fol: No Subjective Patient reports: No new complaints Other Systems: Patient seen and examined by myself today in follow-up Objective vital signs Vital Sign Date Time Temp Pulse Resp B/P (MAP) Pulse Ox O2 Delivery O2 Flow Rate FiO2 01/31/25 09:00 97.9 71 16 120/75 (90) 100 97.9 01/31/25 08:00 Nasal Cannula* 3 32 Total Intake and Output 01/30/25 01/30/25 01/31/25 15:00 23:00 07:00 Intake Total 600 ml 500 ml Output Total 300 ml Balance 300 ml 500 ml medications Current Medications Medications Dose Ordered Sig/Alexander Route Start Time Stop Time Status Last Admin Dose Admin Diagnostic Test (Pha) 1 strip ACHS 01/29/25 11:30 01/31/25 06:20 Insulin Human Regular ACHS SC 01/29/25 11:30 01/29/25 11:30 Dextrose 50 ml UD PRN IV 01/29/25 07:15 Aspirin 81 mg DAILY PO 01/29/25 10:00 01/30/25 10:19 Atorvastatin Calcium 40 mg HS PO 01/29/25 22:00 01/29/25 22:09 Acetaminophen 650 mg Q6HP PRN PO 01/29/25 07:15 01/29/25 20:22 Ondansetron HCl 4 mg Q4HP PRN IV 01/29/25 07:15 Nitroglycerin 0.4 mg Q5MINP PRN SL 01/29/25 07:15 Morphine Sulfate 2 mg Q30M PRN IV 01/29/25 07:15 01/29/25 15:24 Folic Acid 1 mg DAILY PO 01/29/25 10:00 01/30/25 10:21 Enoxaparin Sodium 40 mg DAILY SC 01/29/25 09:45 01/31/25 09:22 Thiamine HCl 100 mg DAILY PO 01/29/25 10:00 01/30/25 10:21 Multivitamins/ Minerals 1 tab DAILY PO 01/29/25 10:00 01/30/25 10:17 Levalbuterol HCl 1.25 mg Q6HR NEB 01/29/25 12:00 01/31/25 07:51 Ipratropium [place] 0.5 mg Q6HR NEB 01/29/25 12:00 01/31/25 07:50 Budesonide 0.25 mg BID NEB 01/29/25 11:15 01/31/25 07:51 Metoprolol Succinate 25 mg DAILY PO 01/30/25 10:00 01/30/25 10:00 Acetaminophen/ Hydrocodone Bitart 1 tab Q6HPRN PRN PO 01/30/25 00:00 01/30/25 17:33 Acetylcysteine 100 mg Q6HR NEB 01/31/25 00:00 01/31/25 07:51 Levetiracetam 100 ml @ 400 mls/hr DAILY IV 01/30/25 22:00 01/31/25 09:22 Clopidogrel Bisulfate 75 mg DAILY PO 01/30/25 22:15 02/20/25 23:00 Lorazepam 1 mg Q5MINP PRN IV 01/30/25 22:15 Sodium Chloride 1,000 ml @ 75 mls/hr [id number] IV 01/30/25 22:15 01/30/25 22:15 Examination: LUNGS:Normal, CVS:Normal, MSK:Normal laboratory and microbiology Laboratory Tests 01/31/25 06:06 Test 01/31/25 06:06 Range/Units Serum Glucose 161 H 74-106 mg/dL Microbiology Date/Time Source Procedure Growth Status 01/29/25 13:40 Nose MRSA Screen - Final Complete Problem List/Assessment/Plan Problem List/Assessment/Plan Acute kidney injury superimposed Chronic Kidney Disease secondary hemodynamic mediated Acute on chronic respiratory failure, O2 supplements Acute on chronic CHF exacerbation-NYHA class 3 NSTEMI Acute on chronic COPD exacerbation Diabetes mellitus type II Anemia of chronic kidney disease Hypertension seizures disorder Hypernatremia due to dehydration REC: Kidney function is improving No urine output charted Strict I&Os Check urine electrolytes and protein excretion kidney ultrasound reported mild right hydronephrosis Hold diuretics Blood pressure control We will continue to follow Plan discussed with: Patient My Orders My Orders Orders - ANJALI HAWLEY MD Procedure Category Date Status Time Kidney US 01/30/25 Resulted 18:14 Urine Sodium LAB 01/30/25 Logged 18:14 Urine LAB 01/30/25 Logged Protein/Creatinine Urine Creatinine LAB 01/30/25 Logged 18:14 Urinalysis LAB 01/30/25 Logged 18:14 Communication Order ORDERS 01/31/25 Transmitted 09:49 ANJALI HAWLEY MD Jan 31, 2025 11:20
[2025-01-31] MEDS: SOD CHL 0.45% 1,000 ML IV SCH (11:30)
[2025-01-31] MEDS: ERGOCALCIFEROL 50,000 UNIT(1.25MG) CAP PO SCH (11:30)
[2025-01-31] MEDS: MORPHINE SULFATE 4 MG/ML SYR/VIAL IV PRN (11:46)
--- NOTE | 2025-01-31 11:56 | DVHPN2 ---
Reviewed: Care Plan, H&P, Labs, Medications, Previous Orders Changes from previous H/P or p: No Changes Cardiovascular: Chest Pain Respiratory: Shortness of breath Objective Vitals Vital Signs Date Time Temp Pulse Resp B/P (MAP) Pulse Ox O2 Delivery O2 Flow Rate FiO2 01/31/25 09:00 97.9 71 16 120/75 (90) 100 97.9 01/31/25 08:00 Nasal Cannula* 3 32 Intake/Output Intake and Output 01/31/25 07:00 Intake Total 1100 ml Output Total 300 ml Balance 800 ml Intake Oral 400 ml IV Total 700 ml Output Urine Total 300 ml Medications Current Medications Medications Dose Ordered Sig/Alexander Route Start Time Stop Time Status Last Admin Dose Admin Diagnostic Test (Pha) 1 strip ACHS 01/29/25 11:30 01/31/25 11:36 1 STRIP Insulin Human Regular ACHS SC 01/29/25 11:30 01/29/25 11:30 6 UNITS Dextrose 50 ml UD PRN IV 01/29/25 07:15 Aspirin 81 mg DAILY PO 01/29/25 10:00 01/30/25 10:19 81 MG Atorvastatin Calcium 40 mg HS PO 01/29/25 22:00 01/29/25 22:09 40 MG Acetaminophen 650 mg Q6HP PRN PO 01/29/25 07:15 01/29/25 20:22 650 MG Ondansetron HCl 4 mg Q4HP PRN IV 01/29/25 07:15 Nitroglycerin 0.4 mg Q5MINP PRN SL 01/29/25 07:15 Folic Acid 1 mg DAILY PO 01/29/25 10:00 01/30/25 10:21 1 MG Enoxaparin Sodium 40 mg DAILY SC 01/29/25 09:45 01/31/25 09:22 40 MG Thiamine HCl 100 mg DAILY PO 01/29/25 10:00 01/30/25 10:21 100 MG Multivitamins/ Minerals 1 tab DAILY PO 01/29/25 10:00 01/30/25 10:17 1 TAB Levalbuterol HCl 1.25 mg Q6HR NEB 01/29/25 12:00 01/31/25 07:51 1.25 MG Ipratropium [place] 0.5 mg Q6HR NEB 01/29/25 12:00 01/31/25 07:50 0.5 MG Budesonide 0.25 mg BID NEB 01/29/25 11:15 01/31/25 07:51 0.25 MG Metoprolol Succinate 25 mg DAILY PO 01/30/25 10:00 01/30/25 10:00 25 MG Acetaminophen/ Hydrocodone Bitart 1 tab Q6HPRN PRN PO 01/30/25 00:00 01/30/25 17:33 1 TAB Acetylcysteine 100 mg Q6HR NEB 01/31/25 00:00 01/31/25 07:51 100 MG Levetiracetam 100 ml @ 400 mls/hr DAILY IV 01/30/25 22:00 01/31/25 09:22 400 MLS/HR Clopidogrel Bisulfate 75 mg DAILY PO 01/30/25 22:15 02/20/25 23:00 Lorazepam 1 mg Q5MINP PRN IV 01/30/25 22:15 Morphine Sulfate 2 mg Q30M PRN IV 01/31/25 11:30 Sodium Chloride 1,000 ml @ 75 mls/hr [id number] IV 01/31/25 11:30 UNV Ergocalciferol 50,000 unit Q7D PO 01/31/25 11:30 UNV Laboratory Results Laboratory Tests 01/31/25 06:06 Chemistry Test 01/30/25 18:59 01/31/25 06:06 Albumin 3.9 g/dL (3.2-4.8) Calcium Level 7.6 mg/dL (8.7-10.4) L 7.3 mg/dL (8.7-10.4) L Magnesium Level 1.8 mg/dL (1.6-2.6) 1.9 mg/dL (1.6-2.6) Total Protein 7.2 g/dL (5.7-8.2) Cardiac Markers Test 01/30/25 12:48 B-Type Natriuretic Peptide 180.87 pg/mL (0-100) LFT Test 01/30/25 18:59 Alanine Aminotransferase (ALT) 20 U/L (7-40) Alkaline Phosphatase 77 U/L (46-116) Aspartate Amino Transferase (AST) 23 U/L (13-40) Total Bilirubin 0.4 mg/dL (0.2-1.0) Urinalysis Test 01/29/25 08:00 Urine Color Light-yellow (Yellow) Urine Clarity Clear (Clear) Urine pH 6.0 (5.0-9.0) Urine Specific [place] 1.016 (1.001-1.035) Urine Protein 1+ (Negative) H Urine Ketones Negative (Negative) Urine Blood Trace /uL (Negative) H Urine Nitrite Negative (Negative) Urine Bilirubin Negative (Negative) Urine Urobilinogen Normal mg/dL (Negative) Urine Leukocyte Esterase Negative /uL (Negative) Urine RBC <1 /hpf (0 - 4) Urine Microscopic WBC 1 /HPF (0-5) Urine Squamous Epithelial Cells Few /hpf (<5) Urine Bacteria None seen /hpf (None Seen) Urine Glucose 2+ mg/dL (Normal) H Blood Gas Results Test 01/30/25 12:18 Arterial Blood pH 7.304 (7.350-7.450) FiO2 % 32.0 Microbiology Microbiology Date/Time Source Procedure Growth Status 01/29/25 13:40 Nose MRSA Screen - Final Complete Labs and/or images reviewed: Labs reviewed by me, Image(s) reviewed by me Assessment/Plan Assessment/Plan Covering for Dr. Ricardo Guerrero Rule out acute CVA, CT head inconclusive, MRI brain pending, carotid ultrasound neg Acute on chronic CHF exacerbation-NYHA class 3: Consult by Cardiology appreciated echo 60 percent ejection fraction, Cardiolite stress test neg, no further cardiac workup NSTEMI likely type 2 Acute on chronic COPD exacerbation Acute chest pain, likely pleuritic COPD on 3 L home oxygen CAD with 3 [place] History of CVA with left-facial droop/aphasia Diabetes mellitus-A1c unknown Anemia likely microcytic secondary to alcohol use Leukopenia secondary to alcohol use Hypertension Chronic nicotine dependence Chronic alcohol dependence History of seizure disorder Time Spent 70 minutes Advanced care planning time 20 minutes Patient is full code ALBERT Dunn at bedside Plan discussed with: Patient Date of Service: Jan 31, 2025 Billing Provider: ROC PENALOZA MD Common Visit Codes: [id number] CARE 30-74 MIN ORC PENALOZA MD Jan 31, 2025 11:56
[2025-01-31 12:50] LABS: Protein, Urine 72.6 mg/dL (1-14); Urine Protein, UAD 1+ (Negative)
--- NOTE | 2025-01-31 13:44 | DVH ---
CLINICAL HISTORY: RIGHT UPPER EXTREMITY SWELLING TECHNIQUE: Color and duplex doppler imaging of the right upper extremity veins and right subclavian vein was performed. Vessel compression if possible was also performed. WID: COMPARISON: US CAROTID DUPLX W COLOR DOP on DOS: 01/30/25, RIGHT US VENOUS EXTREMITY LOWER LTD on DOS: 11/06/22, LEFT US VENOUS EXTREMITY UNILAT on DOS: 08/08/22 FINDINGS: The right internal jugular, axillary, basilic, cephalic, brachial , radial, veins are patent and demonstrate normal compressibility and flow. The right subclavian is patent. Mild subcutaneous edema in the right upper extremity IMPRESSION: 1. NO SONOGRAPHIC EVIDENCE FOR DEEP VENOUS THROMBOSIS IN THE RIGHT UPPER EXTREMITY VEINS. 2. Mild subcutaneous edema in the right upper extremity
--- NOTE | 2025-01-31 23:07 | DVHPN2 ---
Progress Note - Dictate Date Seen: Jan 31, 2025 Medical Necessity Reason Pt with a Central, PICC or Fol: No Subjective Ms. Bustos is a 59 years old right-handed female with a history of hypertension, diabetes, coronary artery disease, congestive heart failure, multiple strokes, COPD, seizure, sleep apnea, she is transferred from the [facility] on 01/29/2025 with a chief complaint of elevated troponin level, shortness breath, but patient also has a new stroke syndrome. I have seen and examined the patient along with her nurse, she is doing okay, still can not speak but is clear She is NPO, but she wants to eat UDS, 01/29/2025: Opiates Urinalysis, 01/29/2025: Unremarkable CBC, 01/30/2025: Respiratory acidosis CBC/HB/PLT/MCV, 01/30/2025: 7/8.4/166/104 BUN/CR, 01/30/2025: 29/2.26 GFR, 01/30/2025: 24 HGB A1c, 01/29/25: 5.2 Liver function tests, 01/29/2025: Unremarkable TG/HDL/LDL/HDL, 01/30/2025: 115/285/66/179 Vitamin B12, 01/29/2025: Family 64 Folic acid, 01/29/2025: 19.13 TSH, 01/29/25: 3.1 Echocardiogram, 01/29/2025: Technically good study. Sinus rhythm. Mild aortic root enlargement. Valves are normal. EF of 60% with normal RV function. Mild TR. No pericardial effusion masses or vegetations Carotid Doppler 01/30/2025: No evidence of hemodynamically significant CCA or ICA stenosis. CT head 01/30/2025: Inconspicuous area of loss of lance-white differentiation of the right parietal lobe to right posterior temporal lobe. Underlying acute infarction not excluded MR head, 01/30/2025: Reports pending, I saw multiple strokes in bilateral hemispheres, she also has chronic strokes in both hemispheres vital signs Vital Sign Date Time Temp Pulse Resp B/P (MAP) Pulse Ox O2 Delivery O2 Flow Rate FiO2 01/31/25 21:00 97.5 82 18 170/93 (118) 93 97.5 01/31/25 18:19 Nasal Cannula 0.5 01/31/25 18:19 24 Total Intake and Output 01/30/25 01/30/25 01/31/25 15:00 23:00 07:00 Intake Total 600 ml 500 ml Output Total 300 ml Balance 300 ml 500 ml medications Current Medications Medications Dose Ordered Sig/Alexander Route Start Time Stop Time Status Last Admin Dose Admin Diagnostic Test (Pha) 1 strip ACHS 01/29/25 11:30 01/31/25 21:16 1 STRIP Insulin Human Regular ACHS SC 01/29/25 11:30 01/29/25 11:30 6 UNITS Dextrose 50 ml UD PRN IV 01/29/25 07:15 Aspirin 81 mg DAILY PO 01/29/25 10:00 01/30/25 10:19 81 MG Atorvastatin Calcium 40 mg HS PO 01/29/25 22:00 01/31/25 21:06 40 MG Acetaminophen 650 mg Q6HP PRN PO 01/29/25 07:15 01/29/25 20:22 650 MG Ondansetron HCl 4 mg Q4HP PRN IV 01/29/25 07:15 Nitroglycerin 0.4 mg Q5MINP PRN SL 01/29/25 07:15 Folic Acid 1 mg DAILY PO 01/29/25 10:00 01/30/25 10:21 1 MG Thiamine HCl 100 mg DAILY PO 01/29/25 10:00 01/30/25 10:21 100 MG Multivitamins/ Minerals 1 tab DAILY PO 01/29/25 10:00 01/30/25 10:17 1 TAB Levalbuterol HCl 1.25 mg Q6HR NEB 01/29/25 12:00 01/31/25 18:19 1.25 MG Ipratropium [place] 0.5 mg Q6HR NEB 01/29/25 12:00 01/31/25 18:18 0.5 MG Budesonide 0.25 mg BID NEB 01/29/25 11:15 01/31/25 18:19 0.25 MG Metoprolol Succinate 25 mg DAILY PO 01/30/25 10:00 01/30/25 10:00 25 MG Acetaminophen/ Hydrocodone Bitart 1 tab Q6HPRN PRN PO 01/30/25 00:00 01/31/25 21:06 1 TAB Acetylcysteine 100 mg Q6HR NEB 01/31/25 00:00 01/31/25 18:19 100 MG Levetiracetam 100 ml @ 400 mls/hr DAILY IV 01/30/25 22:00 01/31/25 09:22 400 MLS/HR Clopidogrel Bisulfate 75 mg DAILY PO 01/30/25 22:15 02/20/25 23:00 Lorazepam 1 mg Q5MINP PRN IV 01/30/25 22:15 Morphine Sulfate 2 mg Q30M PRN IV 01/31/25 11:30 01/31/25 15:28 2 MG Sodium Chloride 1,000 ml @ 75 mls/hr [id number] IV 01/31/25 11:30 01/31/25 11:30 75 MLS/HR Ergocalciferol 50,000 unit Q7D PO 01/31/25 11:30 Enoxaparin Sodium 30 mg DAILY SC 02/01/25 10:00 objective General: the patient is well developed and nourished. No acute distress. MENTAL STATUS: Awake and alert. Follows commands SPEECH, LANGUAGE, HIGHER CORTICAL FUNCTION: She has expressive aphasia, she does not vocalize CRANIAL NERVES: Pupils are equal, round and reactive. EOMs full and conjugate. Facial sensation intact in all three divisions bilaterally. Mandibular strength intact. Right facial weakness of upper motor neuron pattern Tongue midline. SENSATION: Sensation to touch and pinprick is normal. MOTOR: Normal tone in the upper and lower extremity. Normal muscle bulk. No fasciculations. No abnormal movements or posturing. Muscle strength of the major groups in the upper left is 5/5. Muscle strength of the major groups in the right extremities is 4/5 with right arm drift REFLEXES: Deep tendon reflexes are symmetrical. No pathological reflexes. CEREBELLAR/COORDINATION: Finger to nose is unremarkable bilaterally GAIT/STATION: deferred. laboratory and microbiology Laboratory Tests 01/31/25 06:06 Test 01/31/25 06:06 Range/Units Serum Glucose 161 H 74-106 mg/dL Problem List Acute multiple strokes Chronic bilateral strokes Acute expressive aphasia secondary to acute stroke Right mild hemiparesis secondary to acute stroke Reports seizure disorder Sleep apnea Alcohol abuse Nicotine abuse Assessment/Plan Monitoring Supportive treatment Telemetry NPO for now EEG MARISELA Aspirin 81 mg daily Plavix 75 mg daily for 21 days Lipitor 40 mg daily Keppra 500 mg daily IV fluid Thiamine supplementation Folic acid supplementation Speech pathology evaluation Need to quit alcohol and tobacco completely Consider CPAP treatment later More recommendation per clinical course This medical document was created using an electronic medical record system with [employer] dictation system. Although this document has been carefully reviewed, there may still be some phonetic and typographical errors. These areas are purely typographical due to imperfections of the software programs, and do not reflect any compromise in the patient's medical care. Prognosis poor Plan discussed with: Patient, Other Total Time (mins): 40 BENOIT SALCEDO MD Jan 31, 2025 23:07
[2025-02-01] VITALS (17 sets, daily range): BP systolic 122–190; BP diastolic 70–112; PULSE 63–98; RESP 16–20; TEMP 97.6–98.8; O2SAT 76–100
[2025-02-01 06:58] LABS: Carbon Dioxide 26 mmol/L (20-31)
[2025-02-01 07:04] LABS: BUN/Creatinine Ratio 16.5 (10.0-20.0); Blood Urea Nitrogen 22 mg/dL (9-23); Magnesium 1.9 mg/dL (1.6-2.6)
[2025-02-01 07:10] LABS: Calcium 7.5 mg/dL (8.7-10.4); Glucose 116 mg/dL (74-106); Potassium 3.5 mmol/L (3.5-5.1); Sodium 147 mmol/L (136-145)
[2025-02-01 07:13] LABS: Hemoglobin 7.7 g/dL (12.2-16.2)
[2025-02-01 07:15] LABS: Hematocrit 23.6 % (36.0-46.0); Mean Corpuscular Hemoglobin 33.5 pg (28.0-32.0); Mean Corpuscular Volume 102.9 fL (80.0-100.0); Nucleated Red Blood Cells % 0.3 %
[2025-02-01 09:09] LABS: Anion Gap 6 (5-15)
--- NOTE | 2025-02-01 09:22 | ECG ---
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
[2025-02-01] MEDS: ENOXAPARIN SOD 30 MG/0.3 ML SYRINGE SC SCH (10:28)
--- NOTE | 2025-02-01 11:02 | DVHPN2 ---
Progress Note Date Seen: Feb 01, 2025 Medical Necessity Reason Pt with a Central, PICC or Fol: No Subjective Patient reports: No new complaints Other Systems: Patient seen and examined by myself today in follow-up Objective vital signs Vital Sign Date Time Temp Pulse Resp B/P (MAP) Pulse Ox O2 Delivery O2 Flow Rate FiO2 02/01/25 10:00 97 Nasal Cannula 02/01/25 10:00 3 32 02/01/25 09:00 98.8 98 16 167/88 (114) 98.8 Total Intake and Output 01/31/25 01/31/25 02/01/25 15:00 23:00 07:00 Intake Total 0 ml Balance 0 ml medications Current Medications Medications Dose Ordered Sig/Alexander Route Start Time Stop Time Status Last Admin Dose Admin Diagnostic Test (Pha) 1 strip ACHS 01/29/25 11:30 02/01/25 06:33 1 STRIP Insulin Human Regular ACHS SC 01/29/25 11:30 01/29/25 11:30 6 UNITS Dextrose 50 ml UD PRN IV 01/29/25 07:15 Aspirin 81 mg DAILY PO 01/29/25 10:00 01/30/25 10:19 81 MG Atorvastatin Calcium 40 mg HS PO 01/29/25 22:00 01/31/25 21:06 40 MG Acetaminophen 650 mg Q6HP PRN PO 01/29/25 07:15 01/31/25 23:55 650 MG Ondansetron HCl 4 mg Q4HP PRN IV 01/29/25 07:15 Nitroglycerin 0.4 mg Q5MINP PRN SL 01/29/25 07:15 Folic Acid 1 mg DAILY PO 01/29/25 10:00 01/30/25 10:21 1 MG Thiamine HCl 100 mg DAILY PO 01/29/25 10:00 01/30/25 10:21 100 MG Multivitamins/ Minerals 1 tab DAILY PO 01/29/25 10:00 01/30/25 10:17 1 TAB Levalbuterol HCl 1.25 mg Q6HR NEB 01/29/25 12:00 02/01/25 07:41 1.25 MG Ipratropium [place] 0.5 mg Q6HR NEB 01/29/25 12:00 02/01/25 07:41 0.5 MG Budesonide 0.25 mg BID NEB 01/29/25 11:15 02/01/25 07:41 0.25 MG Metoprolol Succinate 25 mg DAILY PO 01/30/25 10:00 01/30/25 10:00 25 MG Acetaminophen/ Hydrocodone Bitart 1 tab Q6HPRN PRN PO 01/30/25 00:00 02/01/25 05:07 1 TAB Acetylcysteine 100 mg Q6HR NEB 01/31/25 00:00 02/01/25 07:41 100 MG Levetiracetam 100 ml @ 400 mls/hr DAILY IV 01/30/25 22:00 02/01/25 10:28 400 MLS/HR Clopidogrel Bisulfate 75 mg DAILY PO 01/30/25 22:15 02/20/25 23:00 Lorazepam 1 mg Q5MINP PRN IV 01/30/25 22:15 Morphine Sulfate 2 mg Q30M PRN IV 01/31/25 11:30 01/31/25 15:28 2 MG Sodium Chloride 1,000 ml @ 75 mls/hr [id number] IV 01/31/25 11:30 01/31/25 11:30 75 MLS/HR Ergocalciferol 50,000 unit Q7D PO 01/31/25 11:30 Enoxaparin Sodium 30 mg DAILY SC 02/01/25 10:00 02/01/25 10:28 30 MG Examination: LUNGS:Normal, CVS:Normal, MSK:Normal laboratory and microbiology Laboratory Tests 02/01/25 05:49 Test 02/01/25 05:49 Range/Units Serum Glucose 116 H 74-106 mg/dL Microbiology Date/Time Source Procedure Growth Status 01/29/25 13:40 Nose MRSA Screen - Final Complete Problem List/Assessment/Plan Problem List/Assessment/Plan Acute kidney injury superimposed Chronic Kidney Disease secondary hemodynamic mediated, FeNa > 2% Acute on chronic respiratory failure, O2 supplements Acute on chronic CHF exacerbation-NYHA class 3 NSTEMI Acute on chronic COPD exacerbation Diabetes mellitus type II 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 Anemia of chronic kidney disease Recurrent CVA Hypertension seizures disorder Hypernatremia due to dehydration REC: Kidney function is improving No urine output charted Strict I&Os kidney ultrasound reported mild right hydronephrosis Check homocystine level Hold diuretics Blood pressure control We will continue to follow Plan discussed with: Patient My Orders My Orders Orders - ANJALI HAWLEY MD Procedure Category Date Status Time Sod Chl 0.45% (Sodium PHA 01/31/25 In Process Chloride 0.45% Via 11:30 Ergocalciferol PHA 01/31/25 In Process (Vitamin D 50,000 11:30 ANJALI HAWLEY MD Feb 01, 2025 11:02
--- NOTE | 2025-02-01 12:32 | DVHPN2 ---
Reviewed: Care Plan, H&P, Labs, Medications, Previous Orders Changes from previous H/P or p: No Changes Cardiovascular: Chest Pain Respiratory: Shortness of breath Objective Vitals Vital Signs Date Time Temp Pulse Resp B/P (MAP) Pulse Ox O2 Delivery O2 Flow Rate FiO2 02/01/25 10:00 97 Nasal Cannula 02/01/25 10:00 3 32 02/01/25 09:00 98.8 98 16 167/88 (114) 98.8 Intake/Output Intake and Output 02/01/25 07:00 Intake Total 0 ml Balance 0 ml Intake Oral 0 ml # Voids 5 # Bowel Movements 1 Medications Current Medications Medications Dose Ordered Sig/Alexander Route Start Time Stop Time Status Last Admin Dose Admin Diagnostic Test (Pha) 1 strip ACHS 01/29/25 11:30 02/01/25 11:54 1 STRIP Insulin Human Regular ACHS SC 01/29/25 11:30 01/29/25 11:30 6 UNITS Dextrose 50 ml UD PRN IV 01/29/25 07:15 Aspirin 81 mg DAILY PO 01/29/25 10:00 01/30/25 10:19 81 MG Atorvastatin Calcium 40 mg HS PO 01/29/25 22:00 01/31/25 21:06 40 MG Acetaminophen 650 mg Q6HP PRN PO 01/29/25 07:15 01/31/25 23:55 650 MG Ondansetron HCl 4 mg Q4HP PRN IV 01/29/25 07:15 Nitroglycerin 0.4 mg Q5MINP PRN SL 01/29/25 07:15 Folic Acid 1 mg DAILY PO 01/29/25 10:00 01/30/25 10:21 1 MG Thiamine HCl 100 mg DAILY PO 01/29/25 10:00 01/30/25 10:21 100 MG Multivitamins/ Minerals 1 tab DAILY PO 01/29/25 10:00 01/30/25 10:17 1 TAB Levalbuterol HCl 1.25 mg Q6HR NEB 01/29/25 12:00 02/01/25 07:41 1.25 MG Ipratropium [place] 0.5 mg Q6HR NEB 01/29/25 12:00 02/01/25 07:41 0.5 MG Budesonide 0.25 mg BID NEB 01/29/25 11:15 02/01/25 07:41 0.25 MG Metoprolol Succinate 25 mg DAILY PO 01/30/25 10:00 01/30/25 10:00 25 MG Acetaminophen/ Hydrocodone Bitart 1 tab Q6HPRN PRN PO 01/30/25 00:00 02/01/25 05:07 1 TAB Acetylcysteine 100 mg Q6HR NEB 01/31/25 00:00 02/01/25 07:41 100 MG Levetiracetam 100 ml @ 400 mls/hr DAILY IV 01/30/25 22:00 02/01/25 10:28 400 MLS/HR Clopidogrel Bisulfate 75 mg DAILY PO 01/30/25 22:15 02/20/25 23:00 Lorazepam 1 mg Q5MINP PRN IV 01/30/25 22:15 Morphine Sulfate 2 mg Q30M PRN IV 01/31/25 11:30 01/31/25 15:28 2 MG Sodium Chloride 1,000 ml @ 75 mls/hr [id number] IV 01/31/25 11:30 01/31/25 11:30 75 MLS/HR Ergocalciferol 50,000 unit Q7D PO 01/31/25 11:30 Enoxaparin Sodium 30 mg DAILY SC 02/01/25 10:00 02/01/25 10:28 30 MG Laboratory Results Laboratory Tests 02/01/25 05:49 Chemistry Test 02/01/25 05:49 Calcium Level 7.5 mg/dL (8.7-10.4) L Magnesium Level 1.9 mg/dL (1.6-2.6) Urinalysis Test 01/31/25 11:23 Urine Color Light-yellow (Yellow) Urine Clarity Clear (Clear) Urine pH 6.5 (5.0-9.0) Urine Specific [place] 1.015 (1.001-1.035) Urine Protein 1+ (Negative) H Urine Ketones Negative (Negative) Urine Blood Negative /uL (Negative) Urine Nitrite Negative (Negative) Urine Bilirubin Negative (Negative) Urine Urobilinogen Normal mg/dL (Negative) Urine Leukocyte Esterase Negative /uL (Negative) Urine RBC None seen /hpf (0 - 4) Urine Microscopic WBC < 1 /HPF (0-5) Urine Squamous Epithelial Cells Few /hpf (<5) Urine Bacteria None seen /hpf (None Seen) Urine Creatinine 74.49 mg/dL (30.0-125.0) Urine Protein/Creatinine Ratio 0.97 Urine Sodium 57 mmol/L (40-220) Urine Glucose Trace mg/dL (Normal) Urine Total Protein 72.6 mg/dL (1-14) H Microbiology Microbiology Date/Time Source Procedure Growth Status 01/29/25 13:40 Nose MRSA Screen - Final Complete Labs and/or images reviewed: Labs reviewed by me, Image(s) reviewed by me Assessment/Plan Assessment/Plan Covering for Dr. Ricardo Guerrero Rule out acute CVA, CT head inconclusive, MRI brain pending, carotid ultrasound neg, DVT ruled out Acute on chronic CHF exacerbation-NYHA class 3: Consult by Cardiology appreciated echo 60 percent ejection fraction, Cardiolite stress test neg, no further cardiac workup NSTEMI likely type 2 Acute on chronic COPD exacerbation Acute chest pain, likely pleuritic COPD on 3 L home oxygen CAD with 3 [place] History of CVA with left-facial droop/aphasia Diabetes ruled out A1c 5.2 Anemia likely microcytic secondary to alcohol use Leukopenia secondary to alcohol use Hypertension Chronic nicotine dependence Chronic alcohol dependence History of seizure disorder Failed swallow evaluation: Start clinimix Time Spent 60 minutes Spoke with Sister Megan on the phone Advanced care planning time 20 minutes Patient is full code RN Val at bedside Pt lives with her son Alfredo in a motel. Plan discussed with: Patient My Orders Orders - ROC PENALOZA MD Procedure Category Date Status Time Rt Upper Dvt US 01/31/25 Resulted 12:[address] 02/01/25 Logged 11:21 Date of Service: Feb 01, 2025 Billing Provider: ROC PENALOZA MD Common Visit Codes: [id number] INP/OBS CARE(HIGH) ROC PENALOZA MD Feb 01, 2025 12:32
[2025-02-01] MEDS ORDERED: CLINIMIX PER PHARMACY 0 ML IV SCH (12:45)
[2025-02-01] MEDS: MORPHINE SULFATE 4 MG/ML SYR/VIAL IV PRN (13:26)
[2025-02-01] MEDS: POTASSIUM CHL 20MEQ/100ML 100 ML IV ONE (17:59)
--- NOTE | 2025-02-01 20:31 | DVHEEG2 ---
Neurology EEG Procedural Note Procedural Note EXAM DATE: 01/31/2025 REFERRING DOCTOR: Dr. Salcedo TECHNIQUE: Eighteen channels of EEG, 2 channels of EOG, and 1 channel of EKG were recorded using the International 10/20 system. CLINICAL DATA: The patient was referred for an EEG evaluation for the evidence of seizure disorder. MEDICATIONS: See the chart BACKGROUND ACTIVITY: There was significant amount of electrode artifacts in the recording,the background activity appeared to be fairly regulated 8-9 Hz rhythmic waveforms, symmetrically distributed over both posterior quadrants and was reactive to external stimuli ACTIVATION: Hyperventilation: Not seen Photic Stimulation: No photic convulsive response Sleep: Noticed IMPRESSION: This is a normal EEG. No focal, lateralized, or epileptiform features are noted. If clinically indicated to rule out a seizure disorder, recommend repeat EEG with sleep deprivation. The EKG channel showed a regular heart rate of 78 per minute[place] [address] BENOIT SALCEDO MD Feb 01, 2025 20:31
[2025-02-01] MEDS: AMINO ACID INFUSION IN D10W 1,000 ML IV SCH (22:13)
--- NOTE | 2025-02-01 22:39 | DVHPN2 ---
Progress Note - Dictate Date Seen: Feb 01, 2025 Medical Necessity Reason Pt with a Central, PICC or Fol: No Subjective Ms. Bustos is a 59 years old right-handed female with a history of hypertension, diabetes, coronary artery disease, congestive heart failure, multiple strokes, COPD, seizure, sleep apnea, she is transferred from the [facility] on 01/29/2025 with a chief complaint of elevated troponin level, shortness breath, but patient also has a new stroke syndrome. I have seen and examined the patient along with her nurse, she is doing okay, she is able to vocalize, but her voice is intelligible No new complaints UDS, 01/29/2025: Opiates Urinalysis, 01/29/2025: Unremarkable CBC, 01/30/2025: Respiratory acidosis CBC/HB/PLT/MCV, 01/30/2025: 7/8.4/166/104 BUN/CR, 01/30/2025: 29/2.26 GFR, 01/30/2025: 24 HGB A1c, 01/29/25: 5.2 Liver function tests, 01/29/2025: Unremarkable TG/HDL/LDL/HDL, 01/30/2025: 115/285/66/179 Vitamin B12, 01/29/2025: Family 64 Folic acid, 01/29/2025: 19.13 TSH, 01/29/25: 3.1 EEG, 01/31/2025: Normal Echocardiogram, 01/29/2025: Technically good study. Sinus rhythm. Mild aortic root enlargement. Valves are normal. EF of 60% with normal RV function. Mild TR. No pericardial effusion masses or vegetations Carotid Doppler 01/30/2025: No evidence of hemodynamically significant CCA or ICA stenosis. CT head 01/30/2025: Inconspicuous area of loss of lance-white differentiation of the right parietal lobe to right posterior temporal lobe. Underlying acute infarction not excluded MR head, 01/30/2025: Reports pending, I saw multiple strokes in bilateral hemispheres, she also has chronic strokes in both hemispheres vital signs Vital Sign Date Time Temp Pulse Resp B/P (MAP) Pulse Ox O2 Delivery O2 Flow Rate FiO2 02/01/25 21:00 97.6 80 19 190/112 (138) 97 97.6 02/01/25 19:03 Nasal Cannula 3.0 02/01/25 19:03 32 Total Intake and Output 01/31/25 01/31/25 02/01/25 15:00 23:00 07:00 Intake Total 0 ml Balance 0 ml medications Current Medications Medications Dose Ordered Sig/Alexander Route Start Time Stop Time Status Last Admin Dose Admin Diagnostic Test (Pha) 1 strip ACHS 01/29/25 11:30 02/01/25 22:14 1 STRIP Insulin Human Regular ACHS SC 01/29/25 11:30 01/29/25 11:30 6 UNITS Dextrose 50 ml UD PRN IV 01/29/25 07:15 Aspirin 81 mg DAILY PO 01/29/25 10:00 01/30/25 10:19 81 MG Atorvastatin Calcium 40 mg HS PO 01/29/25 22:00 01/31/25 21:06 40 MG Acetaminophen 650 mg Q6HP PRN PO 01/29/25 07:15 01/31/25 23:55 650 MG Ondansetron HCl 4 mg Q4HP PRN IV 01/29/25 07:15 Nitroglycerin 0.4 mg Q5MINP PRN SL 01/29/25 07:15 Folic Acid 1 mg DAILY PO 01/29/25 10:00 01/30/25 10:21 1 MG Thiamine HCl 100 mg DAILY PO 01/29/25 10:00 01/30/25 10:21 100 MG Multivitamins/ Minerals 1 tab DAILY PO 01/29/25 10:00 01/30/25 10:17 1 TAB Levalbuterol HCl 1.25 mg Q6HR NEB 01/29/25 12:00 02/01/25 19:03 1.25 MG Ipratropium [place] 0.5 mg Q6HR NEB 01/29/25 12:00 02/01/25 19:03 0.5 MG Budesonide 0.25 mg BID NEB 01/29/25 11:15 02/01/25 19:03 0.25 MG Metoprolol Succinate 25 mg DAILY PO 01/30/25 10:00 01/30/25 10:00 25 MG Acetylcysteine 100 mg Q6HR NEB 01/31/25 00:00 02/01/25 19:03 100 MG Levetiracetam 100 ml @ 400 mls/hr DAILY IV 01/30/25 22:00 02/01/25 10:28 400 MLS/HR Clopidogrel Bisulfate 75 mg DAILY PO 01/30/25 22:15 02/20/25 23:00 Lorazepam 1 mg Q5MINP PRN IV 01/30/25 22:15 Morphine Sulfate 2 mg Q30M PRN IV 01/31/25 11:30 01/31/25 15:28 2 MG Sodium Chloride 1,000 ml @ 75 mls/hr [id number] IV 01/31/25 11:30 02/01/25 14:27 75 MLS/HR Ergocalciferol 50,000 unit Q7D PO 01/31/25 11:30 Enoxaparin Sodium 30 mg DAILY SC 02/01/25 10:00 02/01/25 10:28 30 MG Morphine Sulfate 2 mg Q6HPRN PRN IV 02/01/25 13:00 02/01/25 20:01 2 MG Amino Acids 0 ml @ 0 mls/hr PER PHARMACY IV 02/01/25 12:45 Amino Acids/ Electrolytes/ Dextrose 1,000 ml @ 41 mls/hr DAILY@2200 IV 02/01/25 22:00 02/01/25 22:13 41 MLS/HR objective General: the patient is well developed and nourished. No acute distress. MENTAL STATUS: Awake and alert. Follows commands SPEECH, LANGUAGE, HIGHER CORTICAL FUNCTION: She has expressive aphasia, she does not vocalize CRANIAL NERVES: Pupils are equal, round and reactive. EOMs full and conjugate. Facial sensation intact in all three divisions bilaterally. Mandibular strength intact. Right facial weakness of upper motor neuron pattern. Tongue midline. SENSATION: Sensation to touch and pinprick is normal. MOTOR: Normal tone in the upper and lower extremity. Normal muscle bulk. No fasciculations. No abnormal movements or posturing. Muscle strength of the major groups in the upper left is 5/5. Muscle strength of the major groups in the right extremities is 4/5 with right arm drift REFLEXES: Deep tendon reflexes are symmetrical. No pathological reflexes. CEREBELLAR/COORDINATION: Finger to nose is unremarkable bilaterally GAIT/STATION: deferred. laboratory and microbiology Laboratory Tests 02/01/25 05:49 Test 02/01/25 05:49 Range/Units Serum Glucose 116 H 74-106 mg/dL Problem List Acute multiple strokes Chronic bilateral strokes Acute expressive aphasia secondary to acute stroke Right mild hemiparesis secondary to acute stroke Reports seizure disorder Sleep apnea Alcohol abuse Nicotine abuse Assessment/Plan Monitoring Supportive treatment Telemetry NPO for now MARISELA Aspirin 300 mg CO Qd/Aspirin 81 mg daily Plavix 75 mg daily for 21 days Lipitor 40 mg daily Keppra 500 mg daily IV fluid Thiamine supplementation Folic acid supplementation Speech pathology evaluation Need to quit alcohol and tobacco completely Consider CPAP treatment later More recommendation per clinical course This medical document was created using an electronic medical record system with [employer] dictation system. Although this document has been carefully reviewed, there may still be some phonetic and typographical errors. These areas are purely typographical due to imperfections of the software programs, and do not reflect any compromise in the patient's medical care. Prognosis poor Plan discussed with: Patient, Other Total Time (mins): 35 BENOIT SALCEDO MD Feb 01, 2025 22:39
[2025-02-02] VITALS (16 sets, daily range): BP systolic 101–180; BP diastolic 53–98; PULSE 57–84; RESP 14–20; TEMP 97.2–98.3; O2SAT 93–100
[2025-02-02] MEDS: MELATONIN 5 MG TAB PO ONE (01:30)
[2025-02-02] MEDS: diphenhydrAMINE HCL 50 MG/1 ML VL IV ONE (03:38)
[2025-02-02 06:36] LABS: Hematocrit 25.3 % (36.0-46.0); Hemoglobin 8.3 g/dL (12.2-16.2); Mean Corpuscular Hemoglobin 33.3 pg (28.0-32.0); Mean Corpuscular Volume 102.0 fL (80.0-100.0); Nucleated Red Blood Cells % 0.1 %
[2025-02-02 06:51] LABS: Alanine Aminotransferase 16 U/L (7-40); Albumin 3.8 g/dL (3.2-4.8); Alkaline Phosphatase 62 U/L (46-116); Anion Gap 7 (5-15); BUN/Creatinine Ratio 12.5 (10.0-20.0); Bilirubin, Total 0.6 mg/dL (0.2-1.0); Blood Urea Nitrogen 13 mg/dL (9-23); Carbon Dioxide 26 mmol/L (20-31); Magnesium 1.7 mg/dL (1.6-2.6); Sodium 143 mmol/L (136-145); Total Protein 6.7 g/dL (5.7-8.2)
[2025-02-02 06:52] LABS: Calcium 8.0 mg/dL (8.7-10.4); Chloride 110 mmol/L (98-107); Glucose 115 mg/dL (74-106); Potassium 3.2 mmol/L (3.5-5.1)
[2025-02-02 08:11] LABS: Triglycerides 281 mg/dL (< 150)
--- NOTE | 2025-02-02 10:46 | DVHPN2 ---
Progress Note - Dictate Date Seen: Feb 02, 2025 Medical Necessity Reason Pt with a Central, PICC or Fol: No Subjective Ms. Bustos is a 59 years old right-handed female with a history of hypertension, diabetes, coronary artery disease, congestive heart failure, multiple strokes, COPD, seizure, sleep apnea, she is transferred from the [facility] on 01/29/2025 with a chief complaint of elevated troponin level, shortness breath, but patient also has a new stroke syndrome. I have seen and examined the patient along with her nurse, she is doing bed, he is able to talk with slurry, difficult to understand voice. She failed swallow evaluation. No new complaints Her grandson in the room, we have discussed about her stroke, clonic strokes, tests, stroke risk facts, especially we discussed about tobacco smoking but she clearly voiced that she would not quit He wants to eat UDS, 01/29/2025: Opiates Urinalysis, 01/29/2025: Unremarkable CBC, 01/30/2025: Respiratory acidosis CBC/HB/PLT/MCV, 01/30/2025: 7/8.4/166/104 BUN/CR, 01/30/2025: 29/2.26 GFR, 01/30/2025: 24 HGB A1c, 01/29/25: 5.2 Liver function tests, 01/29/2025: Unremarkable TG/HDL/LDL/HDL, 01/30/2025: 115/285/66/179 Vitamin B12, 01/29/2025: Family 64 Folic acid, 01/29/2025: 19.13 TSH, 01/29/25: 3.1 EEG, 01/31/2025: Normal Echocardiogram, 01/29/2025: Technically good study. Sinus rhythm. Mild aortic root enlargement. Valves are normal. EF of 60% with normal RV function. Mild TR. No pericardial effusion masses or vegetations Carotid Doppler 01/30/2025: No evidence of hemodynamically significant CCA or ICA stenosis. CT head 01/30/2025: Inconspicuous area of loss of lance-white differentiation of the right parietal lobe to right posterior temporal lobe. Underlying acute infarction not excluded MR head, 01/30/2025: Reports pending, I saw multiple strokes in bilateral hemispheres, she also has chronic strokes in both hemispheres vital signs Vital Sign Date Time Temp Pulse Resp B/P (MAP) Pulse Ox O2 Delivery O2 Flow Rate FiO2 02/02/25 10:05 78 20 180/101 02/02/25 09:00 98.2 98 98.2 02/02/25 06:02 Nasal Cannula 3.0 02/02/25 06:02 32 Total Intake and Output 02/01/25 02/01/25 02/02/25 15:00 23:00 07:00 Intake Total 1100 ml 0 ml Balance 1100 ml 0 ml medications Current Medications Medications Dose Ordered Sig/Alexander Route Start Time Stop Time Status Last Admin Dose Admin Diagnostic Test (Pha) 1 strip ACHS 01/29/25 11:30 02/02/25 06:42 1 STRIP Insulin Human Regular ACHS SC 01/29/25 11:30 01/29/25 11:30 6 UNITS Dextrose 50 ml UD PRN IV 01/29/25 07:15 Aspirin 81 mg DAILY PO 01/29/25 10:00 01/30/25 10:19 81 MG Atorvastatin Calcium 40 mg HS PO 01/29/25 22:00 01/31/25 21:06 40 MG Acetaminophen 650 mg Q6HP PRN PO 01/29/25 07:15 01/31/25 23:55 650 MG Ondansetron HCl 4 mg Q4HP PRN IV 01/29/25 07:15 Nitroglycerin 0.4 mg Q5MINP PRN SL 01/29/25 07:15 Folic Acid 1 mg DAILY PO 01/29/25 10:00 01/30/25 10:21 1 MG Thiamine HCl 100 mg DAILY PO 01/29/25 10:00 01/30/25 10:21 100 MG Multivitamins/ Minerals 1 tab DAILY PO 01/29/25 10:00 01/30/25 10:17 1 TAB Levalbuterol HCl 1.25 mg Q6HR NEB 01/29/25 12:00 02/02/25 06:02 1.25 MG Ipratropium [place] 0.5 mg Q6HR NEB 01/29/25 12:00 02/02/25 06:02 0.5 MG Budesonide 0.25 mg BID NEB 01/29/25 11:15 02/02/25 06:02 0.25 MG Metoprolol Succinate 25 mg DAILY PO 01/30/25 10:00 01/30/25 10:00 25 MG Acetylcysteine 100 mg Q6HR NEB 01/31/25 00:00 02/02/25 06:03 100 MG Levetiracetam 100 ml @ 400 mls/hr DAILY IV 01/30/25 22:00 02/02/25 10:00 400 MLS/HR Clopidogrel Bisulfate 75 mg DAILY PO 01/30/25 22:15 02/20/25 23:00 Lorazepam 1 mg Q5MINP PRN IV 01/30/25 22:15 Morphine Sulfate 2 mg Q30M PRN IV 01/31/25 11:30 01/31/25 15:28 2 MG Sodium Chloride 1,000 ml @ 75 mls/hr [id number] IV 01/31/25 11:30 02/01/25 23:10 75 MLS/HR Ergocalciferol 50,000 unit Q7D PO 01/31/25 11:30 Enoxaparin Sodium 30 mg DAILY SC 02/01/25 10:00 02/02/25 10:01 30 MG Morphine Sulfate 2 mg Q6HPRN PRN IV 02/01/25 13:00 02/02/25 10:05 2 MG Amino Acids 0 ml @ 0 mls/hr PER PHARMACY IV 02/01/25 12:45 Amino Acids/ Electrolytes/ Dextrose 1,000 ml @ 41 mls/hr DAILY@2200 IV 02/01/25 22:00 02/01/25 22:13 41 MLS/HR Aspirin 300 mg DAILY [place] 02/01/25 23:00 02/02/25 02:11 300 MG objective General: the patient is well developed and nourished. No acute distress. MENTAL STATUS: Awake and alert. Follows commands SPEECH, LANGUAGE, HIGHER CORTICAL FUNCTION: She has expressive aphasia, she does not vocalize CRANIAL NERVES: Pupils are equal, round and reactive. EOMs full and conjugate. Facial sensation intact in all three divisions bilaterally. Mandibular strength intact. Right facial weakness of upper motor neuron pattern. Tongue midline. SENSATION: Sensation to touch and pinprick is normal. MOTOR: Normal tone in the upper and lower extremity. Normal muscle bulk. No fasciculations. No abnormal movements or posturing. Muscle strength of the major groups in the upper left is 5/5. Muscle strength of the major groups in the right extremities is 4/5 with right arm drift REFLEXES: Deep tendon reflexes are symmetrical. No pathological reflexes. CEREBELLAR/COORDINATION: Finger to nose is unremarkable bilaterally GAIT/STATION: deferred. laboratory and microbiology Laboratory Tests 02/02/25 05:52 Test 02/02/25 05:52 Range/Units Serum Glucose 115 H 74-106 mg/dL Problem List Acute multiple strokes Chronic bilateral strokes Acute expressive aphasia secondary to acute stroke Right mild hemiparesis secondary to acute stroke Reports seizure disorder Sleep apnea Alcohol abuse Nicotine abuse Assessment/Plan Monitoring Supportive treatment Telemetry NPO for now MARISELA Aspirin 300 mg TX Qd/Aspirin 81 mg daily Plavix 75 mg daily for 21 days Lipitor 40 mg daily Keppra 500 mg daily IV fluid Thiamine supplementation Folic acid supplementation Speech pathology evaluation Need to quit alcohol and tobacco completely Consider CPAP treatment later More recommendation per clinical course This medical document was created using an electronic medical record system with [employer] dictation system. Although this document has been carefully reviewed, there may still be some phonetic and typographical errors. These areas are purely typographical due to imperfections of the software programs, and do not reflect any compromise in the patient's medical care. Prognosis poor Plan discussed with: Patient, Son, Other Total Time (mins): 50 BENOIT SALCEDO MD Feb 02, 2025 10:46
[2025-02-02] MEDS: LABETALOL HCL 20 MG/4 ML VL IV ONE (11:14)
--- NOTE | 2025-02-02 11:36 | DVHPN2 ---
Reviewed: Care Plan, H&P, Labs, Medications, Previous Orders Changes from previous H/P or p: No Changes Cardiovascular: Chest Pain Respiratory: Shortness of breath Objective Vitals Vital Signs Date Time Temp Pulse Resp B/P (MAP) Pulse Ox O2 Delivery O2 Flow Rate FiO2 02/02/25 11:14 75 186/105 02/02/25 10:35 18 02/02/25 10:00 96 Nasal Cannula* 2 28 02/02/25 09:00 98.2 98.2 Intake/Output Intake and Output 02/02/25 07:00 Intake Total 1100 ml Balance 1100 ml Intake Oral 0 ml IV Total 1100 ml # Voids 9 Medications Current Medications Medications Dose Ordered Sig/Alexander Route Start Time Stop Time Status Last Admin Dose Admin Diagnostic Test (Pha) 1 strip ACHS 01/29/25 11:30 02/02/25 11:32 1 STRIP Insulin Human Regular ACHS SC 01/29/25 11:30 01/29/25 11:30 6 UNITS Dextrose 50 ml UD PRN IV 01/29/25 07:15 Aspirin 81 mg DAILY PO 01/29/25 10:00 01/30/25 10:19 81 MG Atorvastatin Calcium 40 mg HS PO 01/29/25 22:00 01/31/25 21:06 40 MG Acetaminophen 650 mg Q6HP PRN PO 01/29/25 07:15 01/31/25 23:55 650 MG Ondansetron HCl 4 mg Q4HP PRN IV 01/29/25 07:15 Nitroglycerin 0.4 mg Q5MINP PRN SL 01/29/25 07:15 Folic Acid 1 mg DAILY PO 01/29/25 10:00 01/30/25 10:21 1 MG Thiamine HCl 100 mg DAILY PO 01/29/25 10:00 01/30/25 10:21 100 MG Multivitamins/ Minerals 1 tab DAILY PO 01/29/25 10:00 01/30/25 10:17 1 TAB Levalbuterol HCl 1.25 mg Q6HR NEB 01/29/25 12:00 02/02/25 06:02 1.25 MG Ipratropium [place] 0.5 mg Q6HR NEB 01/29/25 12:00 02/02/25 06:02 0.5 MG Budesonide 0.25 mg BID NEB 01/29/25 11:15 02/02/25 06:02 0.25 MG Metoprolol Succinate 25 mg DAILY PO 01/30/25 10:00 01/30/25 10:00 25 MG Acetylcysteine 100 mg Q6HR NEB 01/31/25 00:00 02/02/25 06:03 100 MG Levetiracetam 100 ml @ 400 mls/hr DAILY IV 01/30/25 22:00 02/02/25 10:00 400 MLS/HR Clopidogrel Bisulfate 75 mg DAILY PO 01/30/25 22:15 02/20/25 23:00 Lorazepam 1 mg Q5MINP PRN IV 01/30/25 22:15 Morphine Sulfate 2 mg Q30M PRN IV 01/31/25 11:30 01/31/25 15:28 2 MG Ergocalciferol 50,000 unit Q7D PO 01/31/25 11:30 Enoxaparin Sodium 30 mg DAILY SC 02/01/25 10:00 02/02/25 10:01 30 MG Morphine Sulfate 2 mg Q6HPRN PRN IV 02/01/25 13:00 02/02/25 10:05 2 MG Amino Acids 0 ml @ 0 mls/hr PER PHARMACY IV 02/01/25 12:45 Amino Acids/ Electrolytes/ Dextrose 1,000 ml @ 41 mls/hr DAILY@2200 IV 02/01/25 22:00 02/01/25 22:13 41 MLS/HR Aspirin 300 mg DAILY NV 02/01/25 23:00 02/02/25 02:11 300 MG Laboratory Results Laboratory Tests 02/02/25 05:52 Chemistry Test 02/02/25 05:52 Albumin 3.8 g/dL (3.2-4.8) Calcium Level 8.0 mg/dL (8.7-10.4) L Magnesium Level 1.7 mg/dL (1.6-2.6) Phosphorus Level 2.5 mg/dL (2.4-5.1) Total Protein 6.7 g/dL (5.7-8.2) Lipid panel Test 02/02/25 05:52 Triglycerides Level 281 mg/dL (< 150) H LFT Test 02/02/25 05:52 Alanine Aminotransferase (ALT) 16 U/L (7-40) Alkaline Phosphatase 62 U/L (46-116) Aspartate Amino Transferase (AST) 25 U/L (13-40) Total Bilirubin 0.6 mg/dL (0.2-1.0) Urinalysis Test 01/31/25 11:23 Urine Color Light-yellow (Yellow) Urine Clarity Clear (Clear) Urine pH 6.5 (5.0-9.0) Urine Specific [place] 1.015 (1.001-1.035) Urine Protein 1+ (Negative) H Urine Ketones Negative (Negative) Urine Blood Negative /uL (Negative) Urine Nitrite Negative (Negative) Urine Bilirubin Negative (Negative) Urine Urobilinogen Normal mg/dL (Negative) Urine Leukocyte Esterase Negative /uL (Negative) Urine RBC None seen /hpf (0 - 4) Urine Microscopic WBC < 1 /HPF (0-5) Urine Squamous Epithelial Cells Few /hpf (<5) Urine Bacteria None seen /hpf (None Seen) Urine Creatinine 74.49 mg/dL (30.0-125.0) Urine Protein/Creatinine Ratio 0.97 Urine Sodium 57 mmol/L (40-220) Urine Glucose Trace mg/dL (Normal) Urine Total Protein 72.6 mg/dL (1-14) H Microbiology Microbiology Date/Time Source Procedure Growth Status 01/29/25 13:40 Nose MRSA Screen - Final Complete Labs and/or images reviewed: Labs reviewed by me, Image(s) reviewed by me Assessment/Plan Assessment/Plan Covering for Dr. Ricardo Guerrero Rule out acute CVA, CT head inconclusive, MRI brain pending, carotid ultrasound neg, DVT ruled out Acute on chronic CHF exacerbation-NYHA class 3: Consult by Cardiology appreciated echo 60 percent ejection fraction, Cardiolite stress test neg, no further cardiac workup NSTEMI likely type 2 Acute on chronic COPD exacerbation Acute chest pain, likely pleuritic COPD on 3 L home oxygen CAD with 3 [place] History of CVA with left-facial droop/aphasia Diabetes ruled out A1c 5.2 Anemia likely microcytic secondary to alcohol use Leukopenia secondary to alcohol use Hypertension Chronic nicotine dependence Chronic alcohol dependence History of seizure disorder Failed swallow evaluation: Start clinimix Time Spent 60 minutes Spoke with Sister Megan on the phone Advanced care planning time 20 minutes Patient is full code ALBERT Neal at bedside Son Alfredo [phone] bedside and requesting group home facility placement for rehab, physical therapist recommended SNF placement Plan discussed with: Patient My Orders Orders - ROC PENALOZA MD Procedure Category Date Status Time Clinimix Per Pharmacy PHA 02/01/25 In Process 12:45 Morphine Sulfate PHA 02/01/25 In Process Injection 13:00 Amino Acid Infusion PHA 02/01/25 In Process In D10w (Clinimix 4. 22:00 Clinimix Per Pharmacy KEVEN 02/01/25 In Process 22:00 Date of Service: Feb 02, 2025 Billing Provider: ROC PENALOZA MD Common Visit Codes: [id number] INP/OBS CARE(HIGH) ROC PENALOZA MD Feb 02, 2025 11:36
--- NOTE | 2025-02-02 13:22 | DVH ---
PROCEDURE: BRAIN HEAD WO CONTRAST Indication: slurred speech r/o cva COMPARISON: 01/30/2025 TECHNIQUE: Multiplanar multisequence images of the brain are obtained. FINDINGS: There are numerous foci of diffusion restriction within the left parietal/temporal cortical region. There is also Small amount of diffusion restriction within the medial right temporal lobe, left frontoparietal montiel radiata/centrum semiovale. There are moderate periventricular and subcortical white matter T2/FLAIR hyperintense changes. Old bilateral parietal montiel radiata infarcts. Old right occipital/posterior right parietal infarction. Old right basal ganglia lacunar infarct. Old right pontine infarct. There is no intracranial hemorrhage. No extra-axial fluid collection, mass effect or midline shift. The ventricles are midline and normal in size. The cisterns are patent. Normal intracranial flow voids are preserved. Falcine calcifications. Small bilateral mastoid effusions. Mucosal thickening ethmoids, bilateral maxillary sinuses The visualized orbits are unremarkable. IMPRESSION: Numerous foci of acute infarction most pronounced within the left parietal and temporal cortical region. Other regions of punctate acute infarction involve the medial right temporal lobe, left frontoparietal montiel radiata/centrum semiovale. Moderate chronic microvascular ischemic changes. Old infarcts as described. Paranasal sinus disease. Small bilateral mastoid effusions. STUBBS
[2025-02-02] MEDS: METOPROLOL SUCCINATE XL 50 MG TAB PO SCH (14:45)
--- NOTE | 2025-02-02 15:06 | DVHDS2 ---
Discharge Summary Date of Admission Jan 29, 2025 at 07:15 Date of Discharge: Feb 02, 2025 Admitting Diagnosis Generalized weakness and altered mental status Wounds: none Labs/Diagnostic Data: Laboratory Results Test 02/02/25 11:12 02/02/25 05:52 02/01/25 13:14 01/31/25 11:23 POC Glucose 151 mg/dl (70-106) White Blood Count 6.5 10^3/uL (4.4-10.8) Red Blood Count 2.48 10^6/uL (4.0-5.20) Hemoglobin 8.3 g/dL (12.2-16.2) Hematocrit 25.3 % (36.0-46.0) Mean Corpuscular Volume 102.0 fL (80.0-100.0) Mean Corpuscular Hemoglobin 33.3 pg (28.0-32.0) Mean Corpuscular Hemoglobin Concent 32.7 g/dL (32.0-36.0) Red Cell Distribution Width 15.9 % (11.8-14.3) Platelet Count 176 10^3/uL (140-450) Mean Platelet Volume 7.6 fL (6.9-10.8) Neutrophils (%) (Auto) 78.0 % (37.0-80.0) Lymphocytes (%) (Auto) 14.0 % (10.0-50.0) Monocytes (%) (Auto) 7.2 % (0.0-12.0) Eosinophils (%) (Auto) 0.6 % (0.0-7.0) Basophils (%) (Auto) 0.2 % (0.0-2.0) Neutrophils # (Auto) 5.0 10 ^3/uL (1.6-8.6) Lymphocytes # (Auto) 0.9 10 ^3/uL (0.4-5.4) Monocytes # (Auto) 0.5 10 ^3/uL (0-1.3) Eosinophils # (Auto) 0 10 ^3/uL (0-0.8) Basophils # (Auto) 0 10 ^3/uL (0-0.2) Nucleated Red Blood Cells 0.1 % Sodium Level 143 mmol/L (136-145) Potassium Level 3.2 mmol/L (3.5-5.1) Chloride Level 110 mmol/L (98-107) Carbon Dioxide Level 26 mmol/L (20-31) Anion Gap 7 (5-15) Blood Urea Nitrogen 13 mg/dL (9-23) Creatinine 1.04 mg/dL (0.550-1.02) Glomerular Filtration Rate Calc 62 mL/min (>90) BUN/Creatinine Ratio 12.5 (10.0-20.0) Serum Glucose 115 mg/dL (74-106) Calcium Level 8.0 mg/dL (8.7-10.4) Phosphorus Level 2.5 mg/dL (2.4-5.1) Magnesium Level 1.7 mg/dL (1.6-2.6) Total Bilirubin 0.6 mg/dL (0.2-1.0) Aspartate Amino Transferase (AST) 25 U/L (13-40) Alanine Aminotransferase (ALT) 16 U/L (7-40) Alkaline Phosphatase 62 U/L (46-116) Total Protein 6.7 g/dL (5.7-8.2) Albumin 3.8 g/dL (3.2-4.8) Triglycerides Level 281 mg/dL (< 150) Urine Color Light-yellow (Yellow) Urine Clarity Clear (Clear) Urine pH 6.5 (5.0-9.0) Urine Specific [place] 1.015 (1.001-1.035) Urine Protein 1+ (Negative) Urine Ketones Negative (Negative) Urine Blood Negative /uL (Negative) Urine Nitrite Negative (Negative) Urine Bilirubin Negative (Negative) Urine Urobilinogen Normal mg/dL (Negative) Urine Leukocyte Esterase Negative /uL (Negative) Urine RBC None seen /hpf (0 - 4) Urine Microscopic WBC < 1 /HPF (0-5) Urine Squamous Epithelial Cells Few /hpf (<5) Urine Bacteria None seen /hpf (None Seen) Urine Creatinine 74.49 mg/dL (30.0-125.0) Urine Protein/Creatinine Ratio 0.97 Urine Sodium 57 mmol/L (40-220) Urine Glucose Trace mg/dL (Normal) Urine Total Protein 72.6 mg/dL (1-14) Test 01/30/25 23:21 01/30/25 14:07 01/30/25 12:48 01/30/25 12:18 Troponin I High Sensitivity 64 ng/L (</=34) Vitamin D 25-Hydroxy 9.4 ng/mL (30.0-100) B-Type Natriuretic Peptide 180.87 pg/mL (0-100) Blood Gas Specimen Type Arterial Blood Gas Sample Site Right radial Blood Gas Patient Temperature 37.0 Arterial Blood Date Drawn [id number] Arterial Blood pH 7.304 (7.350-7.450) Arterial Blood Partial Pressure CO2 52.9 mmHg (32.0-45.0) Arterial Blood Partial Pressure O2 109.9 mmHg (83.0-108.0) Arterial Blood HCO3 25.7 mmol/L (21.0-28.0) Arterial Blood Oxygen Saturation 97.9 % (94.0-98.0) Arterial Blood Base Excess -1.0 mmol/L (-2.0-3.0) Arterial Blood Oxyhemoglobin 96.9 % (94.0-98.0) Arterial Blood Carboxyhemoglobin 0.7 % (0.5-1.5) Arterial Blood Methemoglobin 0.3 % (0.0-1.5) Nirav Test Yes Blood Gas Total Hemoglobin 9.30 g/dL (12.0-16.0) Blood Gas Liter Flow 3.00 Blood Gas Modality Nasal cannula FiO2 % 32.0 Test 01/30/25 05:20 01/29/25 12:00 01/29/25 08:00 01/29/25 07:55 Cholesterol Level 285 mg/dL (< 200) LDL Cholesterol 66 mg/dL (< 100) HDL Cholesterol 179 mg/dL (40-59) Parathyroid Hormone (Intact) 325.8 pg/mL (18.4-80.1) Prothrombin Time 10.3 sec (9.3-11.8) Prothrombin Time INR 0.97 (0.9-1.15) Activated Partial Thromboplast Time 23.1 SEC (24.5-34.5) Urine Opiates Screen Pos (NEGATIVE) Urine Fentanyl Screen Neg (NEGATIVE) Urine Barbiturates Screen Neg (NEGATIVE) Urine Phencyclidine Screen Neg (NEGATIVE) Urine Amphetamines Screen Neg (NEGATIVE) Urine Benzodiazepines Screen Neg (NEGATIVE) Urine Cocaine Screen Neg (NEGATIVE) Urine Cannabinoids Screen Neg (NEGATIVE) Hemoglobin A1c 5.2 % A1C (<5.7) Test 01/29/25 05:20 01/29/25 02:40 01/29/25 02:22 Thyroid Stimulating Hormone (TSH) 3.10 uIU/mL (0.55-4.78) Venous Blood pH 7.291 (7.320-7.430) Venous Blood pCO2 at Patient Temp 57.8 mmHg (38.0-54.0) Venous Blood pO2 at Patient Temp 45.3 mmHg (23.0-48.0) Venous Blood HCO3 27.2 mmol/L (22.0-29.0) Venous Blood Base Excess -0.6 mmol/L (-2.0-3.0) Blood Gas Critical Value Read Back Yes Blood Gas Notified Whom Md vipul stein Blood Gas Notified Time [id number] Blood Gas Notified By Rt gianna cano Vitamin B12 Level 564 pg/mL (211-911) Folic Acid 19.13 ng/mL (>5.38) Free Thyroxine (T4) Calculated 0.96 ng/dL (0.89-1.76) Other Laboratory Tests 02/02/25 05:52 Brief Hx & Hospital Course: 59-year-old female with a history of COPD on 3 L of oxygen at home coronary artery disease status post stents history of CVA with left facial droop aphasia and diabetes anemia chronic leukopenia hypotension chronic current smoker chronic alcoholic dependence history of seizures burden by family for generalized weakness and possible stroke. CT head was negative MRI brain showed left temporoparietal acute infarct DVT was ruled out CHF exacerbation class three seen by exterior interior specialist echo 60 percent ejection fraction Cardiolite stress test negative no further cardiac workup placed on Lasix COPD exacerbation treated with the med neb treatment. Patient does not have diabetes A1c 5.2. Patient was seen by exterior interior specialist for chest pain found to be pleuritic chest pain. Patient is being discharged to [facility] facility for rehab for current and previous strokes. Condition poor but stable at the time of discharge. Discussed discharge plan with the patient's son Alfredo at bedside. Consults/Reason for consult Neurology Cardiology Nephrology Operations or Procedures CT head MRI brain Condition at Discharge: Fair Final Diagnosis/Problems List Rule out acute CVA, CT head inconclusive, MRI brain pending, carotid ultrasound neg, DVT ruled out Acute on chronic CHF exacerbation-NYHA class 3: Consult by Cardiology appreciated echo 60 percent ejection fraction, Cardiolite stress test neg, no further cardiac workup NSTEMI likely type 2 Acute on chronic COPD exacerbation Acute chest pain, likely pleuritic COPD on 3 L home oxygen CAD with 3 [place] History of CVA with left-facial droop/aphasia Diabetes ruled out A1c 5.2 Anemia likely microcytic secondary to alcohol use Leukopenia secondary to alcohol use Hypertension Chronic nicotine dependence Chronic alcohol dependence History of seizure disorder Discharge Disposition: Long-Term Facility Discharge Instruct/Medications Diet: Cardiac 2g Na,low cholest Activity: Light activity Follow Up/Referral: Follow up with the retirement Dr Medications: see list Scheduled Folic Acid (Folic Acid), 1 TAB PO DAILY, (Reported) Losartan Potassium (Losartan Potassium), 1 TAB PO DAILY, (Reported) Nifedipine (Nifedipine Er), 1 TAB PO DAILY, (Reported) 35 (Time taken for discharge summary 35 minutes) Discharge Statement: "Patient was advised to return to the ER or call 911 if any headaches, dizziness, shortness of breath, chest pain, abdominal pain, bleeding, fevers, or worsening of medical condition. Patient was counseled about treatment plan, medications, possible side effects, patientverbalized understanding. All questions were answered to the best of my ability. This discharge took greater then 30 minutes in planning, reviewing documentation, counseling the patient, and discussing with other team members." ASSESSMENT ASSESSMENT Hospital Course Improved marginally Assessment Rule out acute CVA, CT head inconclusive, MRI brain pending, carotid ultrasound neg, DVT ruled out Acute on chronic CHF exacerbation-NYHA class 3: Consult by Cardiology appreciated echo 60 percent ejection fraction, Cardiolite stress test neg, no further cardiac workup NSTEMI likely type 2 Acute on chronic COPD exacerbation Acute chest pain, likely pleuritic COPD on 3 L home oxygen CAD with 3 [place] History of CVA with left-facial droop/aphasia Diabetes ruled out A1c 5.2 Anemia likely microcytic secondary to alcohol use Leukopenia secondary to alcohol use Hypertension Chronic nicotine dependence Chronic alcohol dependence History of seizure disorder Date of Service: Feb 02, 2025 Billing Provider: ROC PENALOZA MD Common Visit Codes: [id number] DISCH DAY >30min ROC PENALOZA MD Feb 02, 2025 15:06
[2025-02-02] MEDS: POTASSIUM PHOSPHATE 26.4 MEQ in SODIUM CHL 0.9% 100 ML IV ONE (15:12)
--- NOTE | 2025-02-02 17:13 | DVHPN2 ---
Progress Note Date Seen: Feb 02, 2025 Medical Necessity Reason Pt with a Central, PICC or Fol: No Subjective Patient reports: No new complaints Review of Systems: Deferred Objective vital signs Vital Sign Date Time Temp Pulse Resp B/P (MAP) Pulse Ox O2 Delivery O2 Flow Rate FiO2 02/02/25 15:42 60 18 152/89 02/02/25 13:00 98.1 94 98.1 02/02/25 12:03 Nasal Cannula 3.0 02/02/25 12:03 32 Total Intake and Output 02/01/25 02/01/25 02/02/25 15:00 23:00 07:00 Intake Total 1100 ml 0 ml Balance 1100 ml 0 ml medications Current Medications Medications Dose Ordered Sig/Alexander Route Start Time Stop Time Status Last Admin Dose Admin Aspirin 81 mg DAILY PO 01/29/25 10:00 01/30/25 10:19 81 MG Atorvastatin Calcium 40 mg HS PO 01/29/25 22:00 01/31/25 21:06 40 MG Acetaminophen 650 mg Q6HP PRN PO 01/29/25 07:15 01/31/25 23:55 650 MG Ondansetron HCl 4 mg Q4HP PRN IV 01/29/25 07:15 Nitroglycerin 0.4 mg Q5MINP PRN SL 01/29/25 07:15 Folic Acid 1 mg DAILY PO 01/29/25 10:00 01/30/25 10:21 1 MG Thiamine HCl 100 mg DAILY PO 01/29/25 10:00 01/30/25 10:21 100 MG Multivitamins/ Minerals 1 tab DAILY PO 01/29/25 10:00 01/30/25 10:17 1 TAB Levalbuterol HCl 1.25 mg Q6HR NEB 01/29/25 12:00 02/02/25 12:02 1.25 MG Ipratropium [place] 0.5 mg Q6HR NEB 01/29/25 12:00 02/02/25 12:01 0.5 MG Budesonide 0.25 mg BID NEB 01/29/25 11:15 02/02/25 06:02 0.25 MG Acetylcysteine 100 mg Q6HR NEB 01/31/25 00:00 02/02/25 12:03 100 MG Levetiracetam 100 ml @ 400 mls/hr DAILY IV 01/30/25 22:00 02/02/25 10:00 400 MLS/HR Clopidogrel Bisulfate 75 mg DAILY PO 01/30/25 22:15 02/20/25 23:00 Lorazepam 1 mg Q5MINP PRN IV 01/30/25 22:15 Morphine Sulfate 2 mg Q30M PRN IV 01/31/25 11:30 01/31/25 15:28 2 MG Ergocalciferol 50,000 unit Q7D PO 01/31/25 11:30 Enoxaparin Sodium 30 mg DAILY SC 02/01/25 10:00 02/02/25 10:01 30 MG Morphine Sulfate 2 mg Q6HPRN PRN IV 02/01/25 13:00 02/02/25 15:12 2 MG Amino Acids 0 ml @ 0 mls/hr PER PHARMACY IV 02/01/25 12:45 Amino Acids/ Electrolytes/ Dextrose 1,000 ml @ 41 mls/hr DAILY@2200 IV 02/01/25 22:00 02/01/25 22:13 41 MLS/HR Aspirin 300 mg DAILY UT 02/01/25 23:00 02/02/25 02:11 300 MG Diagnostic Test (Pha) 1 strip Q6HR 02/03/25 00:00 Insulin Human Regular FOLLOW SLIDING SCALE Q6HR SC 02/03/25 00:00 Dextrose 50 ml UD IV 02/03/25 00:00 Metoprolol Succinate 50 mg DAILY PO 02/02/25 14:45 Examination: GENERAL:Abnormal (cant talk) laboratory and microbiology Laboratory Tests 02/02/25 05:52 Test 02/02/25 05:52 Range/Units Serum Glucose 115 H 74-106 mg/dL Microbiology Date/Time Source Procedure Growth Status 01/29/25 13:40 Nose MRSA Screen - Final Complete Problem List/Assessment/Plan Problem List/Assessment/Plan Acute kidney injury superimposed Chronic Kidney Disease secondary hemodynamic mediated, FeNa > 2% Acute on chronic respiratory failure, O2 supplements Acute on chronic CHF exacerbation-NYHA class 3 NSTEMI Acute on chronic COPD exacerbation Diabetes mellitus type II 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
[2025-02-03] VITALS (16 sets, daily range): BP systolic 151–170; BP diastolic 89–104; PULSE 66–92; RESP 16–20; TEMP 98.1–98.7; O2SAT 95–100
[2025-02-03] MEDS: InsuLIN REG 1unit/0.01ml Soln (100units/ml) SC SCH
[2025-02-03] MEDS ORDERED: DEXTROSE (50%) 50ML SYRG IV SCH
[2025-02-03] MEDS: ACCU-CHEK COMFORT CURVE STRIP VI SCH (00:34)
[2025-02-03] MEDS: hydrALAZINE HCL 20 MG/ML VL IV ONE (01:13)
[2025-02-03 06:42] LABS: Hematocrit 26.4 % (36.0-46.0); Hemoglobin 8.9 g/dL (12.2-16.2); Mean Corpuscular Hemoglobin 33.8 pg (28.0-32.0); Mean Corpuscular Volume 99.9 fL (80.0-100.0); Nucleated Red Blood Cells % 0.2 %
[2025-02-03 06:57] LABS: Alanine Aminotransferase 14 U/L (7-40); Alkaline Phosphatase 67 U/L (46-116); Anion Gap 10 (5-15); BUN/Creatinine Ratio 12.3 (10.0-20.0); Blood Urea Nitrogen 15 mg/dL (9-23); Carbon Dioxide 27 mmol/L (20-31); Chloride 106 mmol/L (98-107); Sodium 143 mmol/L (136-145); Total Protein 7.1 g/dL (5.7-8.2)
[2025-02-03 06:58] LABS: Albumin 3.9 g/dL (3.2-4.8); Bilirubin, Total 0.5 mg/dL (0.2-1.0); Calcium 8.1 mg/dL (8.7-10.4); Glucose 116 mg/dL (74-106); Magnesium 1.4 mg/dL (1.6-2.6); Potassium 3.3 mmol/L (3.5-5.1)
--- NOTE | 2025-02-03 11:47 | DVHPN2 ---
Reviewed: Care Plan, H&P, Labs, Medications, Previous Orders Changes from previous H/P or p: No Changes Cardiovascular: Chest Pain Respiratory: Shortness of breath Objective Vitals Vital Signs Date Time Temp Pulse Resp B/P (MAP) Pulse Ox O2 Delivery O2 Flow Rate FiO2 02/03/25 11:33 71 16 100 02/03/25 11:22 2.0 02/03/25 11:22 Nasal Cannula* 28 02/03/25 09:00 98.5 155/89 (111) 98.5 Intake/Output Intake and Output 02/03/25 07:00 Intake Total 616 ml Balance 616 ml Intake Oral 0 ml IV Total 616 ml # Voids 4 Medications Current Medications Medications Dose Ordered Sig/Alexander Route Start Time Stop Time Status Last Admin Dose Admin Atorvastatin Calcium 40 mg HS PO 01/29/25 22:00 01/31/25 21:06 40 MG Acetaminophen 650 mg Q6HP PRN PO 01/29/25 07:15 01/31/25 23:55 650 MG Ondansetron HCl 4 mg Q4HP PRN IV 01/29/25 07:15 Nitroglycerin 0.4 mg Q5MINP PRN SL 01/29/25 07:15 Folic Acid 1 mg DAILY PO 01/29/25 10:00 01/30/25 10:21 1 MG Thiamine HCl 100 mg DAILY PO 01/29/25 10:00 01/30/25 10:21 100 MG Multivitamins/ Minerals 1 tab DAILY PO 01/29/25 10:00 01/30/25 10:17 1 TAB Levalbuterol HCl 1.25 mg Q6HR NEB 01/29/25 12:00 02/03/25 11:21 1.25 MG Ipratropium [place] 0.5 mg Q6HR NEB 01/29/25 12:00 02/03/25 11:21 0.5 MG Budesonide 0.25 mg BID NEB 01/29/25 11:15 02/03/25 06:24 0.25 MG Acetylcysteine 100 mg Q6HR NEB 01/31/25 00:00 02/03/25 11:21 100 MG Levetiracetam 100 ml @ 400 mls/hr DAILY IV 01/30/25 22:00 02/03/25 09:24 400 MLS/HR Clopidogrel Bisulfate 75 mg DAILY PO 01/30/25 22:15 02/20/25 23:00 Lorazepam 1 mg Q5MINP PRN IV 01/30/25 22:15 Morphine Sulfate 2 mg Q30M PRN IV 01/31/25 11:30 01/31/25 15:28 2 MG Ergocalciferol 50,000 unit Q7D PO 01/31/25 11:30 Enoxaparin Sodium 30 mg DAILY SC 02/01/25 10:00 02/03/25 09:12 30 MG Morphine Sulfate 2 mg Q6HPRN PRN IV 02/01/25 13:00 02/03/25 04:44 2 MG Amino Acids 0 ml @ 0 mls/hr PER PHARMACY IV 02/01/25 12:45 Amino Acids/ Electrolytes/ Dextrose 1,000 ml @ 41 mls/hr DAILY@2200 IV 02/01/25 22:00 02/02/25 22:17 41 MLS/HR Aspirin 300 mg DAILY ND 02/01/25 23:00 02/02/25 02:11 300 MG Diagnostic Test (Pha) 1 strip Q6HR 02/03/25 00:00 02/03/25 11:37 1 STRIP Insulin Human Regular FOLLOW SLIDING SCALE Q6HR SC 02/03/25 00:00 Dextrose 50 ml UD IV 02/03/25 00:00 Metoprolol Succinate 50 mg DAILY PO 02/02/25 14:45 Laboratory Results Laboratory Tests 02/03/25 05:30 Chemistry Test 02/03/25 05:30 Albumin 3.9 g/dL (3.2-4.8) Calcium Level 8.1 mg/dL (8.7-10.4) L Magnesium Level 1.4 mg/dL (1.6-2.6) L Phosphorus Level 3.3 mg/dL (2.4-5.1) Total Protein 7.1 g/dL (5.7-8.2) LFT Test 02/03/25 05:30 Alanine Aminotransferase (ALT) 14 U/L (7-40) Alkaline Phosphatase 67 U/L (46-116) Aspartate Amino Transferase (AST) 27 U/L (13-40) Total Bilirubin 0.5 mg/dL (0.2-1.0) Urinalysis Test 01/31/25 11:23 Urine Color Light-yellow (Yellow) Urine Clarity Clear (Clear) Urine pH 6.5 (5.0-9.0) Urine Specific [place] 1.015 (1.001-1.035) Urine Protein 1+ (Negative) H Urine Ketones Negative (Negative) Urine Blood Negative /uL (Negative) Urine Nitrite Negative (Negative) Urine Bilirubin Negative (Negative) Urine Urobilinogen Normal mg/dL (Negative) Urine Leukocyte Esterase Negative /uL (Negative) Urine RBC None seen /hpf (0 - 4) Urine Microscopic WBC < 1 /HPF (0-5) Urine Squamous Epithelial Cells Few /hpf (<5) Urine Bacteria None seen /hpf (None Seen) Urine Creatinine 74.49 mg/dL (30.0-125.0) Urine Protein/Creatinine Ratio 0.97 Urine Sodium 57 mmol/L (40-220) Urine Glucose Trace mg/dL (Normal) Urine Total Protein 72.6 mg/dL (1-14) H Microbiology Microbiology Date/Time Source Procedure Growth Status 01/29/25 13:40 Nose MRSA Screen - Final Complete Labs and/or images reviewed: Labs reviewed by me, Image(s) reviewed by me Assessment/Plan Assessment/Plan Covering for Dr. Ricardo Guerrero Rule out acute CVA, CT head inconclusive, MRI brain pending, carotid ultrasound neg, DVT ruled out Acute on chronic CHF exacerbation-NYHA class 3: Consult by Cardiology appreciated echo 60 percent ejection fraction, Cardiolite stress test neg, no further cardiac workup NSTEMI likely type 2 Acute on chronic COPD exacerbation Acute chest pain, likely pleuritic COPD on 3 L home oxygen CAD with 3 [place] History of CVA with left-facial droop/aphasia Diabetes ruled out A1c 5.2 Anemia likely microcytic secondary to alcohol use Leukopenia secondary to alcohol use Hypertension Chronic nicotine dependence Chronic alcohol dependence History of seizure disorder Failed swallow evaluation: Start clinimix Time Spent 60 minutes Spoke with Sister Megan on the phone Advanced care planning time 20 minutes Patient is full code ALBERT Neal at bedside Son Alfredo [phone] bedside and requesting long-term facility placement for rehab, physical therapist recommended SNF placement Discharged to long-term facility on 02/02/2025, awaiting authorization from [facility], no new complaints Plan discussed with: Patient My Orders Orders - ROC PENALOZA MD Procedure Category Date Status Time Clinimix Per Pharmacy KEVEN 02/02/25 In Process 22:00 Glucose Blood PHA 02/03/25 In Process (Accu-Chek Comfort 00:00 Insulin R (Human) PHA 02/03/25 In Process (Insulin R) 00:00 Dextrose 50% Syringe PHA 02/03/25 In Process 00:00 Metoprolol Xl PHA 02/02/25 In Process Succinate (Toprol Xl) 14:45 * Music Publicist CONS 02/02/25 Transmitted Consult Pt Request For Service PT 02/02/25 Logged 14:49 Discharge DISCHARGE 02/02/25 Transmitted 15:03 * Music Publicist CONS 02/03/25 Transmitted Consult Date of Service: Feb 03, 2025 Billing Provider: ROC PENALOZA MD Common Visit Codes: [id number] INP/OBS CARE(HIGH) ROC PENALOZA MD Feb 03, 2025 11:47
[2025-02-03] MEDS: MAGNESIUM SULFATE 1GM/100ML 100 ML IV SCH (13:15)
[2025-02-03] MEDS: POTASSIUM CHL 20MEQ/100ML 100 ML IV ONE (13:16)
--- NOTE | 2025-02-03 14:57 | DVHPN2 ---
Progress Note Date Seen: Feb 03, 2025 Medical Necessity Reason Pt with a Central, PICC or Fol: No Subjective Patient reports: No new complaints Review of Systems: Deferred Objective vital signs Vital Sign Date Time Temp Pulse Resp B/P (MAP) Pulse Ox O2 Delivery O2 Flow Rate FiO2 02/03/25 13:50 71 16 147/84 02/03/25 12:39 98.5 97 98.5 02/03/25 11:22 2.0 02/03/25 11:22 Nasal Cannula* 28 Total Intake and Output 02/02/25 02/02/25 02/03/25 15:00 23:00 07:00 Intake Total 182 ml 434 ml 0 ml Balance 182 ml 434 ml 0 ml medications Current Medications Medications Dose Ordered Sig/Alexander Route Start Time Stop Time Status Last Admin Dose Admin Atorvastatin Calcium 40 mg HS PO 01/29/25 22:00 01/31/25 21:06 40 MG Acetaminophen 650 mg Q6HP PRN PO 01/29/25 07:15 01/31/25 23:55 650 MG Ondansetron HCl 4 mg Q4HP PRN IV 01/29/25 07:15 Nitroglycerin 0.4 mg Q5MINP PRN SL 01/29/25 07:15 Folic Acid 1 mg DAILY PO 01/29/25 10:00 01/30/25 10:21 1 MG Thiamine HCl 100 mg DAILY PO 01/29/25 10:00 01/30/25 10:21 100 MG Multivitamins/ Minerals 1 tab DAILY PO 01/29/25 10:00 01/30/25 10:17 1 TAB Levalbuterol HCl 1.25 mg Q6HR NEB 01/29/25 12:00 02/03/25 11:21 1.25 MG Ipratropium [place] 0.5 mg Q6HR NEB 01/29/25 12:00 02/03/25 11:21 0.5 MG Budesonide 0.25 mg BID NEB 01/29/25 11:15 02/03/25 06:24 0.25 MG Acetylcysteine 100 mg Q6HR NEB 01/31/25 00:00 02/03/25 11:21 100 MG Levetiracetam 100 ml @ 400 mls/hr DAILY IV 01/30/25 22:00 02/03/25 09:24 400 MLS/HR Clopidogrel Bisulfate 75 mg DAILY PO 01/30/25 22:15 02/20/25 23:00 Lorazepam 1 mg Q5MINP PRN IV 01/30/25 22:15 Morphine Sulfate 2 mg Q30M PRN IV 01/31/25 11:30 01/31/25 15:28 2 MG Ergocalciferol 50,000 unit Q7D PO 01/31/25 11:30 Enoxaparin Sodium 30 mg DAILY SC 02/01/25 10:00 02/03/25 09:12 30 MG Morphine Sulfate 2 mg Q6HPRN PRN IV 02/01/25 13:00 02/03/25 13:20 2 MG Amino Acids 0 ml @ 0 mls/hr PER PHARMACY IV 02/01/25 12:45 Amino Acids/ Electrolytes/ Dextrose 1,000 ml @ 41 mls/hr DAILY@2200 IV 02/01/25 22:00 02/02/25 22:17 41 MLS/HR Aspirin 300 mg DAILY SD 02/01/25 23:00 02/02/25 02:11 300 MG Diagnostic Test (Pha) 1 strip Q6HR 02/03/25 00:00 02/03/25 11:37 1 STRIP Insulin Human Regular FOLLOW SLIDING SCALE Q6HR SC 02/03/25 00:00 02/03/25 12:10 2 UNITS Dextrose 50 ml UD IV 02/03/25 00:00 Metoprolol Succinate 50 mg DAILY PO 02/02/25 14:45 laboratory and microbiology Laboratory Tests 02/03/25 05:30 Test 02/03/25 05:30 Range/Units Serum Glucose 116 H 74-106 mg/dL Microbiology Date/Time Source Procedure Growth Status 01/29/25 13:40 Nose MRSA Screen - Final Complete Problem List/Assessment/Plan Problem List/Assessment/Plan Acute kidney injury superimposed Chronic Kidney Disease secondary hemodynamic mediated, FeNa > 2% Acute on chronic respiratory failure, O2 supplements Acute on chronic CHF exacerbation-NYHA class 3 NSTEMI Acute on chronic COPD exacerbation Diabetes mellitus type II 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 Anemia of chronic kidney disease Recurrent CVA Hypertension seizures disorder Hypernatremia due to dehydration REC: Kidney function stable k replace snf dc pending Plan discussed with: Patient DENISE BLACK MD Feb 03, 2025 14:57
== END 2025-02-03 19:50 | DRG 64 ==
LOC: ER 02:08 → EDBD 02:08 → OVERFLOW 07:15 → TELE-WESTW 10:45
PROVIDERS: ADMIT Family Medicine; ATTEND Family Medicine
DX: I63.9 Cerebral infarction, unspecified (principal); I21.A1 Myocardial infarction type 2; J96.21 Acute and chronic respiratory failure with hypoxia; I50.33 Acute on chronic diastolic (congestive) heart failure; E87.0 Hyperosmolality and hypernatremia; I24.9 Acute ischemic heart disease, unspecified; I13.0 Hypertensive heart and chronic kidney disease with heart failure and stage 1 through stage 4 chronic kidney disease, or unspecified chronic kidney disease; N17.9 Acute kidney failure, unspecified; D72.819 Decreased white blood cell count, unspecified; Z79.02 Long term (current) use of antithrombotics/antiplatelets; G81.91 Hemiplegia, unspecified affecting right dominant side; J44.1 Chronic obstructive pulmonary disease with (acute) exacerbation; D63.1 Anemia in chronic kidney disease; I69.392 Facial weakness following cerebral infarction; E11.22 Type 2 diabetes mellitus with diabetic chronic kidney disease; F10.20 Alcohol dependence, uncomplicated; N18.9 Chronic kidney disease, unspecified; G40.909 Epilepsy, unspecified, not intractable, without status epilepticus; I69.320 Aphasia following cerebral infarction; E87.6 Hypokalemia; I25.10 Atherosclerotic heart disease of native coronary artery without angina pectoris; G47.30 Sleep apnea, unspecified; F17.210 Nicotine dependence, cigarettes, uncomplicated; E78.5 Hyperlipidemia, unspecified; E55.9 Vitamin D deficiency, unspecified; D50.9 Iron deficiency anemia, unspecified; E86.0 Dehydration; Z91.148 Patient's other noncompliance with medication regimen for other reason; Z99.81 Dependence on supplemental oxygen; Z95.5 Presence of coronary angioplasty implant and graft; Z93.3 Colostomy status; Z83.3 Family history of diabetes mellitus; Z82.5 Family history of asthma and other chronic lower respiratory diseases; Z82.49 Family history of ischemic heart disease and other diseases of the circulatory system; Z79.899 Other long term (current) drug therapy; Z79.82 Long term (current) use of aspirin
CPT/HCPCS: 36415; 36600; 70450; 70551; 71045; 76775; 78452; 80048; 80053; 80061; 80307; 81001; 82306; 82570; 82607; 82746; 82805; 82962; 83036; 83090; 83735; 83880; 83970; 84100; 84156; 84300; 84439; 84443; 84478; 84484; 85014; 85018; 85025; 85610; 85730; 87081; 92507; 92610; 93005; 93017; 93306; 93886; 93971; 94640; 94668; 95819; 96374; 96375; 97110; 97116; 97163; 97530; 99291; G0378; J1815; J2405; J3480